=== PATIENT | female | born 1965 | race Caucasian/White ===

== ENCOUNTER → 2021-12-21 08:28 | Outpatient (BNVA) | payer BC, SELFPAY | PROVIDERS: Visit Provider Internal Medicine | DX: M79.672 Pain in left foot (principal) | CPT/HCPCS: 73600; 73620 ==

== ENCOUNTER 2021-12-21 10:21 | Outpatient (CLI) | payer BC, SELFPAY ==
[2021-12-21 11:36] LABS: Calcium 9.2 mg/dL (8.5-10.5)
[2021-12-21 11:43] LABS: Ferritin 263 ng/mL (15-150); Iron 64 ug/dL (37-145); Magnesium 1.9 mg/dL (1.7-2.3); Phosphorus 3.5 mg/dL (2.5-4.5); Thyroid Stimulating Hormone 1.76 uIU/mL (0.27-4.20); Uric Acid 4.1 mg/dL (2.4-5.7)
[2021-12-21 11:44] LABS: Parathyroid Hormone 37.6 pg/mL (15-65)
[2021-12-21 11:52] LABS: Hepatitis B Core AB, Total Non-Reactive (Nonreactive); Hepatitis B Surface Antigen Non-Reactive (Nonreactive); Hepatitis C Virus Antibody Non-Reactive (Nonreactive)
[2021-12-22 12:38] LABS: COMPLEMENT COMPONENT C3C 92 mg/dL (83-193); COMPLEMENT COMPONENT C4C 8 mg/dL (15-57)
[2021-12-22 15:12] LABS: THYROID PEROXIDASE ANTIBODIES 6 IU/mL (<9)
[2021-12-22 16:53] LABS: CENTROMERE B ANTIBODY <1.0 NEG AI (<1.0 NEG); JO-1 ANTIBODY <1.0 NEG AI (<1.0 NEG); RNP ANTIBODY <1.0 NEG AI (<1.0 NEG); SCL-70 ANTIBODY <1.0 NEG AI (<1.0 NEG); SJOGREN'S ANTIBODY (SS-A) <1.0 NEG AI (<1.0 NEG); SM ANTIBODY <1.0 NEG AI (<1.0 NEG); SS-B <1.0 NEG AI (<1.0 NEG)
[2021-12-23 12:22] LABS: COMPLEMENT, TOTAL (CH50) >60 U/mL (31-60)
[2021-12-23 13:13] LABS: ANA PATTERN Nuclear, Homogeneous; ANA SCREEN, IFA POSITIVE (NEGATIVE)
[2021-12-23 15:03] LABS: DNA AB (DS) CRITHIDIA,IFA NEGATIVE (NEGATIVE)
== END 2021-12-21 10:22 | disposition home or self-care (01) ==
PROVIDERS: Visit Provider Internal Medicine
DX: C85.90 Non-Hodgkin lymphoma, unspecified, unspecified site (principal); M25.579 Pain in unspecified ankle and joints of unspecified foot; M32.9 Systemic lupus erythematosus, unspecified; R53.83 Other fatigue
CPT/HCPCS: 36415; 82310; 82728; 83516; 83540; 83735; 83970; 84100; 84443; 84550; 86140; 86160; 86162; 86235; 86255; 86376; 86704; 86803; 87340

== ENCOUNTER → 2022-01-07 12:14 | Outpatient (BNVA) | payer BC, SELFPAY | PROVIDERS: Visit Provider Internal Medicine | DX: R53.83 Other fatigue (principal); M32.9 Systemic lupus erythematosus, unspecified; M25.579 Pain in unspecified ankle and joints of unspecified foot; Z79.899 Other long term (current) drug therapy | CPT/HCPCS: 86480 ==

== ENCOUNTER 2022-11-25 10:26 | Outpatient (CLI) | payer OTHER, SELFPAY ==
--- NOTE | 2022-11-25 | XR_ITS ---
WS: [id number] Exam: XR ribs LT mn 3V w CXR1V [id number] Date/Time of Exam: 11/25/2022 11:41 AM Reason For Exam: CHEST PAIN, UNSPECIFIED There are nondisplaced hairline fractures of the lateral posterior left sixth and seventh ribs. No ot her rib fractures. The left lung is fully expanded and clear. There is chronic fibrosis and scarring with bleb formation in the bilateral lung apices. Normal heart size. The mediastinum is normal in con tour. XR/XR ribs LT mn 3V w CXR1V [id number] IMPRESSION: 1. Nondisplaced hairline fractures of the lateral posterior left sixth and jean-paul nth ribs. No pneumothorax. 2. Fibrous scarring and bleb formation in the bilateral lung apices. Bilateral apical pleural thickening most pronounced on the left.
== END 2022-11-25 10:27 | disposition home or self-care (01) ==
LOC: RAD 10:34
PROVIDERS: PCP Family Medicine; Visit Provider Family Medicine
DX: S22.42XA Multiple fractures of ribs, left side, initial encounter for closed fracture (principal); X58.XXXA Exposure to other specified factors, initial encounter
CPT/HCPCS: 71101

== ENCOUNTER → 2024-04-24 12:34 | Outpatient (BNVA) | payer OTHER, SELFPAY | PROVIDERS: PCP Family Medicine; Visit Provider Registered Nurse Neonatal Intensive Care | DX: R30.0 Dysuria (principal) | CPT/HCPCS: 81000 ==

== ENCOUNTER 2024-05-01 15:22 | Outpatient (CLI) | payer OTHER, SELFPAY ==
--- NOTE | 2024-05-01 15:39 | XRR_ITS ---
PROCEDURE INFORMATION: Exam: XR Abdomen Exam date and time: 05/01/2024 3:44 PM Age: 59 years old Clinical indication: Nausea and vomiting; Abdominal pain; Patient HX: Lymphoma; Additional info: Hematuria/nausea and vomiting/abdominal pain TECHNIQUE: Imaging protocol: Radiologic exam of the abdomen. Views: Frontal supine view of the abdomen. 1 View. COMPARISON: CT chest abdpel w/*[id number] 08/09/2018 1:52 PM FINDINGS: Gastrointestinal tract: Mild constipation without bowel obstruction. Capsule like structure projecting in the rectum and in the descending colon, likely ingested material. Intraperitoneal space: No free air. Organs: Punctate calcifications overlying the left renal shadow and expected course of the left ureter. Vasculature: Pelvic phleboliths. Bones/joints: Bone demineralization without acute fracture or aggressive lesions. XR/XR KUB [id number] IMPRESSION: Working diagnosis of left nephrolithiasis and possibly left ureterolithiasis versus artifact or phleboliths. COMMENTS: Correlation with CT abdomen and pelvis (stone protocol) recommended.
== END 2024-05-01 15:23 | disposition home or self-care (01) ==
PROVIDERS: PCP Family Medicine; Visit Provider Nurse Practitioner Family
DX: R31.9 Hematuria, unspecified (principal); R10.9 Unspecified abdominal pain; R53.83 Other fatigue; R11.2 Nausea with vomiting, unspecified; N20.0 Calculus of kidney
CPT/HCPCS: 74018

== ENCOUNTER 2024-05-02 00:39 | Inpatient (IN) | payer OTHER, SELFPAY ==
[2024-05-02] VITALS (49 sets, daily range): BP systolic 101–161; BP diastolic 52–102; PULSE 64–101; RESP 10–33; TEMP 36.8–36.9; O2SAT 92–98; BMI 17.7; BMI 16.8
[2024-05-02 01:13] LABS: Charge for UA Resulting for Rev
[2024-05-02 01:26] LABS: Bilirubin Urine Negative (Negative); Blood Urine 1+ (Negative); Glucose Urine UA Negative (Normal); Ketones Urine Negative (Negative); Leukocyte Esterase Urine Negative (Negative); Nitrate Urine Negative (Negative); Protein Urine Trace (Negative); Specific Gravity, Urine 1.007 (1.005-1.030); Urine Appearance Clear (CLEAR); Urine Color Yellow (Yellow); Urobilinogen Urine 0.2 mg/dL (Negative); pH Urine 5.5 (5-7)
[2024-05-02 01:30] LABS: Basophils # 0.1 10^3/uL (0.0-0.1); Basophils % 0.6 %; Eosinophils # 0.1 10^3/uL (0.0-0.8); Eosinophils % 1.3 %; Hematocrit 38.3 % (36-47); Lymphocytes # 2.2 10^3/uL (0.8-4.8); Lymphocytes % 22.2 %; Mean Corpuscular HGB Conc 34.2 g/dL (30-55); Mean Corpuscular Hemoglobin 29.2 pg (27-33); Mean Corpuscular Volume 85.3 fl (85-98); Mean Platelet Volume 9.7 fL (7.4-10.4); Monocytes # 1.2 10^3/uL (0.2-0.9); Neutrophils # 6.36 10^3/uL (1.8-7.7); Neutrophils % 63.6 %; Nucleated Red Blood Cells % 0 %; Platelet Count 408 10^3/cmm (157-399); Red Blood Count 4.49 10^6/uL (3.85-5.65); Red Cell Distribution Width 11.8 % (12.1-15.1)
[2024-05-02 01:39] LABS: Add Urine Culture? No; Amorphous Sediment Urine 1+ /hpf; Bacteria Urine TRACE /hpf; Hyaline Casts Urine 0-4 /lpf; Mucus Urine 2+ /hpf; RBC Urine 0-4 /hpf (0-2)
[2024-05-02 01:47] LABS: Alanine Aminotransferase 22 U/L (0-33); Albumin Level 3.9 g/dL (3.5-5.2); Alkaline Phosphatase 120 U/L (35-105); Aspartate Amino Transferase 34 U/L (0-32); Blood Urea Nitrogen 36 mg/dL (8-23); Carbon Dioxide 30 mmol/L (22-29); Chloride 91 mmol/L (98-107); Globulin 3.4 g/dL (1.3-4.6); Glomerular Filtration Rate 22.8 mL/min (90-130); Glucose 123 mg/dL (65-115); Magnesium 1.9 mg/dL (1.7-2.3); Osmolality Calculated 292 mOsm/kg (285-295); Phosphorus 5.2 mg/dL (2.5-4.5); Sodium 136 mmol/L (136-145); Total Bilirubin 0.6 mg/dL (0.15-1.2); Total Protein 7.3 g/dL (6.6-8.7)
--- NOTE | 2024-05-02 02:12 | ED_ITS ---
HPI - Recheck/Abnormal Lab/Rx 2 General: Chief Complaint: Recheck/Abnormal Lab/Rx Stated Complaint: doc called labs show renal failure ER Aamir Time Seen by Provider: 05/02/24 01:23 History of Present Illness: Patient presents to the ER after receiving a call from her PCP stating that she is in renal failure. Patient says she been vomiting and has not been able to keep anything down her stomach at all for about the last 5 days. Patient says she lost about 10 to 15 pounds during the last 2 to 3 months.. Patient developed some weakness overall. She has been having hot and cold flashes, and low abdominal pain for the last 2 to 3 days. Patient is never had any kidney problems before per her. Review of Systems 2 General: Reports: 10 or more systems reviewed and unremarkable except in HPI and below PFSH ED 2 PFSH: Medical History Lymphoma Fatigue Lupus Ankle arthralgia Family History Other Cancer Chronic kidney disease (CKD) Diabetes Hyperlipidemia Stroke Denies family history of Rheumatoid arthritis Lupus CAD (coronary artery disease) Hypertension Social History Smoking and tobacco/nicotine status: current every day tobacco/nicotine user cigarettes Packs smoked per day: 1 Alcohol intake: never Physical Exam 2 Const: COMMON NORMALS: no acute distress, average body habitus, patient oriented x3, no limitations, healthy appearing, alert and well nourished HENMT: COMMON NORMALS: normocephalic, atraumatic, hearing grossly normal bilaterally, external ears normal, Normal external nose present and moist oral mucous membranes HEAD & SCALP: normocephalic and atraumatic NOSE: Normal external nose present EXTERNAL EAR: Yes external ears normal Neck/C-Spine: COMMON NORMALS: full ROM, no lymphadenopathy, supple, no meningeal signs, no JVD and Thyroid normal THYROID: Thyroid normal Chest: COMMONS NORMALS: normal inspection of the chest and normal palpation of entire chest wall Resp: COMMON NORMALS: normal respiratory effort, No retractions, No use of accessory muscles and clear to auscultation bilaterally AUSCULTATION: clear to auscultation bilaterally Cardio: COMMON NORMALS: no JVD, regular rate, regular rhythm, S1 normal heart sound present, S2 normal heart sound present, No gallops present (Cardio), No clicks present (Cardio), No murmurs present (Cardio) and No rub (Cardio) R ATE: regular rate RHYTHM: regular rhythm HEART SOUNDS: S1 normal heart sound present and S2 normal heart sound present GI: COMMON NORMALS: Normal to inspection, nondistended, normoactive bowel sounds present, Soft to palpation, non-tender, No hepatosplenomegaly present and no masses PALPATION: Yes Soft to palpation and Yes No hepatosplenomegaly present Neuro: COMMON NORMALS: patient oriented x3 SENSORIUM/ORIENTATION: Yes alert MENINGEAL SIGNS: Yes no meningeal signs Course 2 Vital Signs: Vital signs: Vital Signs Temperature 98.4 F 05/02/24 00:46 Pulse Rate 73 05/02/24 03:30 Respiratory Rate 16 05/02/24 03:30 Blood Pressure 158/77 05/02/24 03:30 Pulse Oximetry 97 05/02/24 03:30 Oxygen Delivery Me thod Room Air 05/02/24 00:46 MDM - Recheck/Abnormal Lab/Rx Medical Decision Making We repeated labs and checked him against Dr. Margie Simpson's lab work CBC normal, potassium 3.0, BUN/creatinine even more elevated at 36 and 2.2, calcium continuously elevated at 16, patient was given 1 L of normal saline for Zofran, and 40 of oral potassium. Discussed this case with Dr. Montoya who would like this patient paced in ICU for further evaluation and treatment specifically for the elevated calcium. Medical Records I reviewed the patient's medical records. Lab Data I reviewed the patient's lab results. 05/02/24 01:20 05/02/24 01:20 Laboratory Results WBC 10.00 10^3/uL (3.29-11.43) 05/02/24 01:20 RBC 4.49 10^6/uL (3.85-5.65) 05/02/24 01:20 Hgb 13.10 g/dL (11.27-16.99) 05/02/24 01:20 Hct 38.3 % (36-47) 05/02/24 01:20 MCV 85.3 fl (85-98) 05/02/24 01:20 MCH 29.2 pg (27-33) 05/02/24 01:20 MCHC 34.2 g/dL (30-55) 05/02/24 01:20 RDW 11.8 % (12.1-15.1) L 05/02/24 01:20 Plt Count 408 10^3/cmm (157-399) H 05/02/24 01:20 MPV 9.7 fL (7.4-10.4) 05/02/24 01:20 Neut % (Auto) 63.6 % 05/02/24 01:20 Lymph % (Auto) 22.2 % 05/02/24 01:20 [place] % (Auto) 12.0 % 05/02/24 01:20 Eos % (Auto) 1.3 % 05/02/24 01:20 Baso % (Auto) 0.6 % 05/02/24 01:20 Neut # (Auto) 6.36 10^3/uL (1.8-7.7) 05/02/24 01:20 Lymph # (Auto) 2.2 10^3/uL (0.8-4.8) 05/02/24 01:20 [place] # (Auto) 1.2 10^3/uL (0.2-0.9) H 05/02/24 01:20 Eos # (Auto) 0.1 10^3/uL (0.0-0.8) 05/02/24 01:20 Baso # (Auto) 0.1 10^3/uL (0.0-0.1) 05/02/24 01:20 Nucleated RBC % (auto) 0 % 05/02/24 01:20 Nucleated RBCs # 0.0 /100WBC 05/02/24 01:20 Sodium 136 mmol/L (136-145) 05/02/24 01:20 Potassium 3.0 mmol/L (3.5-5.1) L 05/02/24 01:20 Chloride 91 mmol/L (98-107) L 05/02/24 01:20 Carbon Dioxide 30 mmol/L (22-29) H 05/02/24 01:20 Anion Gap 18.0 (5-19) 05/02/24 01:20 BUN 36 mg/dL (8-23) H 05/02/24 01:20 Creatinine 2.2 mg/dL (0.5-0.9) H 05/02/24 01:20 GFR Calculation 22.8 mL/min (90-130) L 05/02/24 01:20 Glucose 123 mg/dL (65-115) H 05/02/24 01:20 Calculated Osmolality 292 mOsm/kg (285-295) 05/02/24 01:20 Calcium 16.0 mg/dL (8.5-10.5) H* 05/02/24 01:20 Phosphorus 5.2 mg/dL (2.5-4.5) H 05/02/24 01:20 Magnesium 1.9 mg/dL (1.7-2.3) 05/02/24 01:20 Total Bilirubin 0.6 mg/dL (0.15-1.2) 05/02/24 01:20 AST 34 U/L (0-32) H 05/02/24 01:20 ALT 22 U/L (0-33) 05/02/24 01:20 Alkaline Phosphatase 120 U/L (35-105) H 05/02/24 01:20 Total Protein 7.3 g/dL (6.6-8.7) 05/02/24 01:20 Albumin 3.9 g/dL (3.5-5.2) 05/02/24 01:20 Globulin 3.4 g/dL (1.3-4.6) 05/02/24 01:20 Urine Color Yellow (Yellow) 05/02/24 01:06 Urine Appearance Clear (CLEAR) 05/02/24 01:06 Urine pH 5.5 (5-7) 05/02/24 01:06 Ur Specific [place] 1.007 (1.005-1.030) 05/02/24 01:06 Urine Protein Trace (Negative) A 05/02/24 01:06 Urine Glucose (UA) Negative (Normal) 05/02/24 01:06 Urine Ketones Negative (Negative) 05/02/24 01:06 Urine Blood 1+ (Negative) A 05/02/24 01:06 Urine Nitrate Negative (Negative) 05/02/24 01:06 Urine Bilirubin Negative (Negative) 05/02/24 01:06 Urine Urobilinogen 0.2 mg/dL (Negative) 05/02/24 01:06 Ur Leukocyte Esterase Negative (Negative) 05/02/24 01:06 Urine RBC 0-4 /hpf (0-2) H 05/02/24 01:06 Urine WBC 5-10 /hpf (0-5) H 05/02/24 01:06 Ur Squamous Epith Cells 5-10 /hpf (0-5) H 05/02/24 01:06 Amorphous Sediment 1+ /hpf 05/02/24 01:06 Urine Bacteria Trace /hpf (NONE) 05/02/24 01:06 Hyaline Casts 0-4 /lpf H 05/02/24 01:06 Urine Mucus 2+ /hpf 05/02/24 01:06 All radiology interpretation(s) finalized by discharge Discharge Plan Discharge Patient Disposition: Admitted As Inpatient Clinical Impression: Hypercalcemia, Acute hypokalemia Acute renal failure Qualifiers: Acute renal failure type: unspecified Qualified Code(s): N17.9 - Acute kidney failure, unspecified Condition: Stable Coding Level of Care Code ED [employer] for Morena Garnica
[2024-05-02] MEDS: sodium chloride 0.9% 1,000 ML 999 ML IV (02:31)
[2024-05-02] MEDS: ondansetron 2 mg/ML SDV 2 mL 4 MG IVP (02:31)
[2024-05-02] MEDS: potassium chloride ER 20 mEq Tablet 40 MEQ PO (03:25)
[2024-05-02] MEDS: HYDROcodone-acetaminophen 5-325 mg Tablet 1 TAB PO (03:31)
--- NOTE | 2024-05-02 03:53 | P.HP_ITS ---
Providers/Chief Complaint 2 Primary Care Provider: Dipti Luna MD Chief Complaint: doc called labs show renal failure ER Aamir History of Present Illness Rabia Galaviz is a 59 year old female With past medical history of Hodgkin's lymphoma presented to the ER after receiving a call from her primary care physician that she is in renal failure. She states she has been having nausea and vomiting for the last 1 week and has not been able to tolerate oral intake. She has lost 10 to 15 pounds in the last 3 months. She has generalized weakness and has been having a lot of hot and cold flashes and complains of abdominal pain for the last 2 to 3 days. She has never had any kidney problems before. Patient does have a history of lupus for which she follows with rheumatology. She was diagnosed in 2005 and has been on hydroxychloroquine since then. Patient also has a history of lymphoma and has has completed 6 rounds of chemo in the past. Workup in ER revealed hypercalcemia with calcium 16, potassium 3, creatinine 2.2. We do not have any other labs on patient from prior. Phosphorus 5.2. Patient states she takes vitamin D and calcium supplements daily. Unable to tell me doses of that however. We will need to complete medication reconciliation with the patient. Medications/Allergies Home Medications Medication Instructions Recorded Confirmed Last Taken Type biotin 10,000 mcg capsule mcg PO 12/21/21 04/24/24 04/30/24 08:00 History ferrous fumarate 325 mg (106 mg 325 mg PO DAILY 12/21/21 05/02/24 04/30/24 08:00 History iron) tablet folic acid 1 mg tablet 1 mg PO DAILY 12/21/21 05/02/24 04/30/24 08:00 History hydroxychloroquine 200 mg tablet 200 mg PO BID 12/21/21 05/02/24 04/30/24 08:00 History multivitamin 1 tab PO DAILY 12/21/21 05/02/24 04/30/24 08:00 History calcium acetate PO 01/07/22 04/24/24 04/30/24 08:00 History diclofenac sodium 1 % topical gel 4 g topical QID #100 grams 01/07/22 04/24/24 Unknown Rx (Voltaren Arthritis Pain) turmeric PO 01/07/22 04/24/24 Unknown History vit C 30 mg-s.gomez 250 mg-celery cap PO 01/07/22 04/24/24 Unknown History seed 75 mg-grape seed extrt capsule (Tart Gomez) meloxicam 15 mg tablet See Rx Instructions .Route 05/19/22 04/24/24 Unknown Rx .COMPLEX #30 tabs Allergies Allergy/AdvReac Type Severity Reaction Status Date / Time Penicillins Allergy Mild ALGY-Rash Verified 05/02/24 00:51 PFSH Acute 2 PFSH: Medical History Lymphoma Fatigue Lupus Ankle arthralgia Family History Other Cancer Chronic kidney disease (CKD) Diabetes Hyperlipidemia Stroke Denies family history of Rheumatoid arthritis Lupus CAD (coronary artery disease) Hypertension Social History Smoking and tobacco/nicotine status: current every day tobacco/nicotine user cigarettes Packs smoked per day: 1 Alcohol intake: never Vitals/I&O/Wt Last Vital Signs Temp 98.4 F 05/02/24 00:46 Pulse 73 05/02/24 03:30 Resp 16 05/02/24 03:30 BP 158/77 05/02/24 03:30 Pulse Ox 97 05/02/24 03:30 O2 Del Method Room Air 05/02/24 00:46 05/01/24 05/01/24 05/02/24 14:59 22:59 06:59 Intake Total 1000 / 1000 Balance 1000 / 1000 Weight last 48 hrs Weight 59.421 kg Physical Exam 2 Narrative: General: Alert oriented x3, patient seen laying in bed HEENT: Normocephalic, atraumatic, EOMI Cardio: Regular rate rhythm, normal S1-S2 Respiratory: Good bilateral air entry, no wheezes no rhonchi appreciated GI: Abdomen soft, nontender, nondistended, bowel sounds + Extremities:no edema, no cyanosis Data 05/02/24 01:20 05/02/24 05:20 A&P Assessment and plan (1) Hypercalcemia: (2) Acute hypokalemia: (3) Lymphoma: (4) Lupus: (5) Fatigue: Plan #Severe Hypercalcemia #DARLING #History of lymphoma, on chemotherapy in the past #SLE, on hydroxychloroquine, follows with rheumatology #Generalized weakness, abdominal pain most likely secondary to hypercalcemia ? Will place on normal saline 200 cc/h, will hold off on adding lasix 2/2 to DARLING at this time ? Place Edmonds catheter for accurate output. Goal urine output 100-150 cc/h ?Calcitonin IV x1, recheck serum calcium in 6 hours, may repeat calcitonin in 12 hours for total duration of 24 hours - albumin 3.9. - Will repeat Calcium level to confirm value before starting calcitonin - Check PTH, PTHrP, TSH, vitamin D level - Denosumab 60 mg subcu x1. pts creatinine clearance is 25 - Check calcium level q4 hours - Pt apparently on calcium acetate supplement at home? Will discontinue - Will need to verify home meds - Potassium 40 meq x 1 given in ER - consider checking CT chest abd pelvis w/o contrast Full Code DVT PPX: Heparin Sub BID Attestations 2 Medical Necessity Statement*: > 2 midnight stay for management of hypercalcemia Diagnoses Hypercalcemia E83.52 Acute hypokalemia E87.6 Lymphoma C85.90 Lupus M32.9 Fatigue R53.83
[2024-05-02] MEDS: sodium chloride 0.9% 1,000 ML 200 ML IV (04:03)
[2024-05-02] MEDS: heparin 5,000 unit/mL INJ 1 mL 5000 UNIT SUBCUT ×2 (05:17→16:38)
[2024-05-02 05:44] LABS: Potassium, Radom Urine 19 mmol/L; Urine Random Chloride 24 mmol/L; Urine Random Sodium 23 mmol/L
[2024-05-02] MEDS: morphine 4 mg/mL SDV 1 mL 2 MG IVP (05:56)
[2024-05-02 06:03] LABS: Alanine Aminotransferase 18 U/L (0-33); Albumin Level 3.4 g/dL (3.5-5.2); Alkaline Phosphatase 103 U/L (35-105); Anion Gap 13.6 (5-19); Aspartate Amino Transferase 31 U/L (0-32); Blood Urea Nitrogen 36 mg/dL (8-23); Carbon Dioxide 30 mmol/L (22-29); Chloride 97 mmol/L (98-107); Glomerular Filtration Rate 21.6 mL/min (90-130); Glucose 107 mg/dL (65-115); Magnesium 1.8 mg/dL (1.7-2.3); Osmolality Calculated 293 mOsm/kg (285-295); Parathyroid Hormone 8.6 pg/mL (15-65); Potassium 3.6 mmol/L (3.5-5.1); Sodium 137 mmol/L (136-145); Thyroid Stimulating Hormone 3.19 uIU/mL (0.27-4.20); Total Bilirubin 0.5 mg/dL (0.15-1.2); Total Protein 6.4 g/dL (6.6-8.7)
--- NOTE | 2024-05-02 06:07 | CT_ITS ---
WS: [id number] CT CHEST, ABDOMEN, AND PELVIS TECHNIQUE: Noncontrast CT of the chest, abdomen, and pelvis with coronal and sagittal reformatted radha ges. CLINICAL INFORMATION: hypercalcemia severe COMPARISON: 2018 DLP: 446.[address] scans at [facility] use at least one of these dose optimization techniques: automated e xposure control; mA and/or kV adjustment per patient size (includes targeted exams where dose is matc hed to clinical indication); or iterative reconstruction. CT CHEST: Advanced chronic emphysematous changes. Prominent biapical fibrosis. Lung bases are well aerated. Destiney pical fibrosis progressed since 2019 but similar in appearance. Slight bronchiectasis in the RIGHT up per lobe with pleural parenchymal scarring. Pleural parenchymal scarring along the RIGHT fissure. No focal pneumonia or pleural fluid. Normal caliber thoracic aorta. Aortic calcification. No mediastinal or hilar lymphadenopathy. No axillary lymphadenopathy. Mild thoracic curve. Moderate thoracic kyphos is. Chronic anterior wedging in the midthoracic spine. CT ABDOMEN AND PELVIS: Lobulated spleen with calcification and mild splenomegaly similar to 2018 but progressed in size. Nor mal noncontrast liver. Normal GE junction. Normal noncontrast gallbladder. Adrenal glands are normal. Edmonds catheter. Aortic calcification. Normal caliber abdominal aorta. Dense rectosigmoid constipatio n. Adrenal glands are normal. Normal visualized noncontrast pancreas. No other acute findings. CT/[place] [id number] IMPRESSION: 1. No acute chest findings. 2. Prominent bilateral extrarenal pelvis. No hydronephrosis in either kidney. No evidence of cortical calcifications or medullary nephrocalcinosis. 3. Edmonds catheter. Air-fluid level in the bladder. 4. Dense sigmoid constipation. 5. Splenomegaly with lobulated spleen with calcification. This is progressed c ompared to previous. 6. No other acute findings.
--- NOTE | 2024-05-02 06:08 | ECG_ITS ---
[facility] Test Date: 2024-05-02 Pat Name: Rabia Galaviz Department: Room: [facility] Gender: Female Public Address Servicer: : 1965 Requested By: Coty Montoya Order Number: [id number] Leelee MD: Sincere Austin M.D. Measurements Intervals [place] Rate: 73 P: 89 [place]: 116 QRS: 87 QRSD: 90 T: 87 QT: 329 QTc: 363 Interpretive Statements SINUS RHYTHM WITH SHORT [place] INTERVAL WITH OCCASIONAL VENTRICULAR PREMATURE COMPLEXES MINIMAL VOLTAGE CRITERIA FOR LVH, CONSIDER NORMAL VARIANT [MEETS CRITERIA IN ONE OF: R(aVL), S(V1), R(V5), R(V5/V6)+S(V1)] NONSPECIFIC T-WAVE ABNORMALITY No previous ECG available for comparison Electronically Signed On 05-02-2024 6:40:02 CDT by Sincere Austin M.D. [id number]
[2024-05-02 06:14] LABS: Procalcitonin 0.13 ng/mL (0-0.5)
[2024-05-02 06:16] LABS: Calcium 14.4 mg/dL (8.5-10.5)
[2024-05-02 06:18] LABS: 25 Hydroxy Vitamin D 104 ng/mL (30-100)
--- NOTE | 2024-05-02 06:18 | PC.NURSE ---
0618 Critical Lab was called. Calcium 14.4 for this patient. Nurse was notified and this is an improved result.
[2024-05-02 08:24] LABS: Calcium 14.2 mg/dL (8.5-10.5)
--- NOTE | 2024-05-02 09:33 | PC.NURSE ---
Pt taken to CT via wheelchair. Tolerated well.
[2024-05-02] MEDS: dexamethasone 10 mg/mL INJ 6 MG IVP (09:51)
[2024-05-02] MEDS: sodium chloride 0.9% 1,000 ML 100 ML IV ×2 (12:17→22:02)
[2024-05-02 12:48] LABS: Calcium 13.9 mg/dL (8.5-10.5)
--- NOTE | 2024-05-02 14:51 | P.PN_ITS ---
Subjective 2 Subjective: Patient was seen this morning, family members are at bedside, she denies any fevers, no chills, no cough, does report about a 20 pound weight loss over the last few months, does report fatigue, malaise, she has had nausea vomiting for the last few days, no headache, no blurry vision, no dysuria, hematuria, no flank pain, she does report a fall a few days ago, but is able to walk since then, she reports a history of B-cell lymphoma, she received chemotherapy, no radiation therapy, her last follow-up was a few years ago, we discussed her hypercalcemia, etiology is concerning for malignancy related, but will continue to do further workup, she is understandable, family members at bedside Vitals/I&O/Wt Last Vital Signs Temp 98.3 F 05/02/24 05:30 Pulse 76 05/02/24 12:00 Resp 25 H 05/02/24 12:00 BP 134/75 05/02/24 12:00 Pulse Ox 97 05/02/24 12:00 O2 Del Method Room Air 05/02/24 06:00 05/01/24 05/02/24 05/02/24 22:59 06:59 14:59 Intake Total 1999 / 1999 440 / 440 Output Total 75 / 75 Balance 192 / 192 440 / 440 Weight last 48 hrs Weight 56.416 kg Weight 56.416 kg Weight 56.416 kg Weight 59.421 kg Physical Exam 2 Const: COMMON NORMALS: no acute distress and patient oriented x3 Resp: COMMON NORMALS: normal respiratory effort, No retractions, No use of accessory muscles and clear to auscultation bilaterally AUSCULTATION: clear to auscultation bilaterally Cardio: COMMON NORMALS: regular rate, regular rhythm, S1 normal heart sound present and S2 normal heart sound present RATE: regular rate RHYTHM: r egular rhythm HEART SOUNDS: S1 normal heart sound present and S2 normal heart sound present GI: COMMON NORMALS: Normal to inspection, nondistended, normoactive bowel sounds present and non-tender Extremity: COMMON NORMALS: no pedal edema Neuro: COMMON NORMALS: patient oriented x3 Psych: COMMON NORMALS: mental status grossly normal Urinary Catheter Management: Demonds: Cath Placed During This Visit: yes Reason for Continuing Indwelling Catheter: Accurate Measurement of Urinary Output in Critically Ill Patients Urinary Catheter Date of Insertion: 05/02/24 Urinary Catheter Time of Insertion: 05:29 Data 05/02/24 01:20 05/02/24 05:20 A&P Assessment and plan (1) Hypercalcemia: (2) Acute hypokalemia: (3) Lymphoma: (4) Lupus: (5) Fatigue: Plan #Severe Hypercalcemia #ADRLING #History of lymphoma, on chemotherapy in the past -History of diffuse large B-cell lymphoma stage IVb, presenting as large gastric mass and bulky celiac regional adenopathy, with metastatic disease in the pleura with moderate left pleural effusion and left adrenal gland and left inguinal lymph node involvement, status post 6 cycles of R-CHOP chemo, #SLE, on hydroxychloroquine, follows with rheumatology #Generalized weakness, abdominal pain most likely secondary to hypercalcemia ? Will place on normal saline 120 cc/h, will hold off on adding lasix 2/2 to DARLING at this time ? Place Edmonds catheter for accurate output. Goal urine output 100-150 cc/h ?Calcitonin IV x1, recheck serum calcium in 6 hours, may repeat calcitonin in 12 hours for total duration of 24 hours - albumin 3.9. - Will repeat Calcium level to confirm value before starting calcitonin - Check PTH, PTHrP, TSH, vitamin D level - Denosumab 60 mg subcu x1. pts creatinine clearance is 25 - Check calcium level q6 hours - Pt apparently on calcium acetate supplement at home? Will discontinue - Will need to verify home meds - Potassium 40 meq x 1 given in ER - CT chest abd pelvis w/o contrast Full Code DVT PPX: Heparin Sub BID Plan for today, spoke to oncology, 1 dose of pamidronate, infusion over 24 hours, given patient's DARLING, slow infusion, monitor serum calcium every 6 hours, IV fluids 1 dose IV steroids, follow test results as above Attestations 2 Medical Necessity Statement*: Patient requires hospitalization for severe hypercalcemia Diagnoses Hypercalcemia E83.52 Acute hypokalemia E87.6 Lymphoma C85.90 Lupus M32.9 Fatigue R53.83
--- NOTE | 2024-05-02 14:55 | USR_ITS ---
PROCEDURE INFORMATION: Exam: US Retroperitoneal; Complete; Kidneys and Bladder Exam date and time: 05/02/2024 4:36 PM Age: 59 years old Clinical indication: Condition or disease; Other: Maikol TECHNIQUE: Imaging protocol: Real-time ultrasound of the retroperitoneum with image documentation. Complete exam focused on the kidneys and bladder. COMPARISON: US abdomen limited [id number] 05/02/2024 4:31 PM FINDINGS: Right kidney: Normal echogenicity. The right kidney measures 14.9 cm in length. No stones. No hydronephrosis. Left kidney: Normal echogenicity. The left kidney measures 12.2 cm in length. No stones. No hydronephrosis. Urinary bladder: Unremarkable. US/US renal BI* [id number] IMPRESSION: Unremarkable kidneys and bladder.
--- NOTE | 2024-05-02 14:55 | USR_ITS ---
PROCEDURE INFORMATION: Exam: US Abdomen; Limited Exam date and time: 05/02/2024 4:31 PM Age: 59 years old Clinical indication: Condition or disease; Other: Splenic lymphoma; Additional info: Spleen, history of splenic lymphoma, mass TECHNIQUE: Imaging protocol: Real time ultrasound of the abdomen with image documentation. Limited exam focused on the region of clinical interest. COMPARISON: [place] [id number] 05/02/2024 8:52 AM FINDINGS: Spleen: Mildly enlarged spleen measuring 13.3 x 12.4 x 3.6 cm/312 mL. Multiple hypoechoic lesions are seen scattered throughout the spleen, the largest measuring 4.9 cm. US/US abdomen limited [id number] IMPRESSION: Mildly enlarged spleen with multiple nonspecific hypoechoic lesions. Further evaluation with contrast enhanced abdomen MRI should be considered in the adequate clinical setting.
[2024-05-02 16:06] LABS: Erythrocyte Sedimentation Rate 53 mm/hr (0-15)
[2024-05-02 18:48] LABS: Anion Gap 14.6 (5-19); Blood Urea Nitrogen 38 mg/dL (8-23); Calcium 13.4 mg/dL (8.5-10.5); Carbon Dioxide 28 mmol/L (22-29); Chloride 100 mmol/L (98-107); Glomerular Filtration Rate 22.8 mL/min (90-130); Glucose 228 mg/dL (65-115); Osmolality Calculated 304 mOsm/kg (285-295); Potassium 3.6 mmol/L (3.5-5.1); Sodium 139 mmol/L (136-145)
[2024-05-03] VITALS (25 sets, daily range): BP systolic 111–164; BP diastolic 59–90; PULSE 59–81; RESP 12–32; TEMP 36.6–36.9; O2SAT 92–99; BMI 16.8
[2024-05-03 00:59] LABS: Calcium 13.1 mg/dL (8.5-10.5)
[2024-05-03] MEDS: heparin 5,000 unit/mL INJ 1 mL 5000 UNIT SUBCUT ×2 (04:51→17:07)
[2024-05-03 05:55] LABS: Basophils % 0.4 %; Eosinophils # 0.1 10^3/uL (0.0-0.8); Eosinophils % 0.5 %; Hematocrit 32.3 % (36-47); Lymphocytes # 1.8 10^3/uL (0.8-4.8); Lymphocytes % 19.9 %; Mean Corpuscular HGB Conc 32.8 g/dL (30-55); Mean Corpuscular Hemoglobin 29.2 pg (27-33); Mean Platelet Volume 9.8 fL (7.4-10.4); Monocytes # 0.9 10^3/uL (0.2-0.9); Monocytes % 9.6 %; Neutrophils # 6.39 10^3/uL (1.8-7.7); Neutrophils % 69.2 %; Nucleated Red Blood Cells % 0 %; Platelet Count 315 10^3/cmm (157-399); Red Blood Count 3.63 10^6/uL (3.85-5.65); Red Cell Distribution Width 11.9 % (12.1-15.1); White Blood Count 9.25 10^3/uL (3.29-11.43)
[2024-05-03 06:21] LABS: Alanine Aminotransferase 16 U/L (0-33); Albumin Level 3.2 g/dL (3.5-5.2); Alkaline Phosphatase 93 U/L (35-105); Anion Gap 15.5 (5-19); Aspartate Amino Transferase 23 U/L (0-32); Blood Urea Nitrogen 37 mg/dL (8-23); Calcium 12.5 mg/dL (8.5-10.5); Carbon Dioxide 26 mmol/L (22-29); Chloride 106 mmol/L (98-107); Globulin 2.1 g/dL (1.3-4.6); Glomerular Filtration Rate 21.6 mL/min (90-130); Glucose 106 mg/dL (65-115); Osmolality Calculated 307 mOsm/kg (285-295); Phosphorus 4.1 mg/dL (2.5-4.5); Potassium 3.5 mmol/L (3.5-5.1); Sodium 144 mmol/L (136-145); Total Bilirubin 0.2 mg/dL (0.15-1.2); Total Protein 5.3 g/dL (6.6-8.7)
[2024-05-03 06:22] LABS: Magnesium 1.9 mg/dL (1.7-2.3)
--- NOTE | 2024-05-03 11:25 | P.CONIM_ITS ---
Providers/Reason For Consult 2 Consulting Physician/Specialty*: kommana/nephrology Reason for Consult*: DARLNIG , hypercalcemia Attending Physician: Dave Moulton MD Primary Care Provider: Dipti Luna MD History of Present Illness History of Present Illness Rabia Galaviz is a 59 year old female Patient is a 59-year-old female with past medical history of Hodgkin's lymphoma due to acute renal failure and hypercalcemia. Patient had been having nausea vomiting for the last 1 week Lost about 10 to 15 pounds recently. Also complained of being generalized weak. Patient also has a history of lupus and she is followed by rheumatology. Further workup in the ER has showed hypercalcemia with a calcium level of 16, creatinine of 2.2. Patient reported that she was taking vitamin D and calcium supplements. She is status post dose of calcitonin and calcium has improved. Creatinine remains stable. Patient currently denies any complaints Review of Systems 2 Narrative: Patient is awake alert, no distress HEENT S1-S2 regular rate and rhythm per report Lungs clear per report No pedal edema Medications/Allergies Home Medications Medication Instructions Recorded Confirmed Last Taken Type biotin 10,000 mcg capsule 10,000 mcg PO DAILY 12/21/21 05/02/24 04/30/24 08:00 History ferrous fumarate 325 mg (106 mg 325 mg PO DAILY 12/21/21 05/02/24 04/30/24 08:00 History iron) tablet folic acid 1 mg tablet 1 mg PO DAILY 12/21/21 05/02/24 04/30/24 08:00 History hydroxychloroquine 200 mg tablet 200 mg PO BID 12/21/21 05/02/24 04/30/24 08:00 History multivitamin 1 tab PO DAILY 12/21/21 05/02/24 04/30/24 08:00 History calcium carbonate 200 mg PO BID 05/02/24 05/02/24 05/01/24 History cyclobenzaprine 10 mg tablet 10 mg PO BEDTIME PRN Spasms 05/02/24 05/02/24 Unknown History tramadol 50 mg tablet 50 mg PO .Q4-6H PRN Pain 05/02/24 05/02/24 Unknown History Allergies Allergy/AdvReac Type Severity Reaction Status Date / Time Penicillins Allergy Mild ALGY-Rash Verified 05/02/24 00:51 Current Medications Generic Name Dose Route Start Last Admin Trade Name Freq PRN Reason Stop Dose Admin Dexamethasone 6 mg 05/02/24 09:45 05/02/24 09:51 Dexamethasone 10 Mg/Ml Inj IVP 6 mg Q24H MARIBELL Administration Heparin Sodium (Porcine) 5,000 unit 05/02/24 04:15 05/03/24 04:51 Heparin 5,000 Unit/Ml Inj 1 Ml SUBCUT 5,000 unit Q12H MARIBELL Administration Sodium Chloride 1,000 mls @ 100 mls/hr 05/02/24 04:00 05/02/24 22:02 Sodium Chloride 0.9% IV 100 mls/hr .Q10H MARIBELL Administration Morphine Sulfate 2 mg 05/02/24 05:37 05/02/24 05:56 Morphine 4 Mg/Ml Sdv 1 Ml IVP 2 mg Q4H PRN Administration SEVERE PAIN PFSH Acute 2 PFSH: Medical History Lymphoma Fatigue Lupus Ankle arthralgia Family History Other Cancer Chronic kidney disease (CKD) Diabetes Hyperlipidemia Stroke Denies family history of Rheumatoid arthritis Lupus CAD (coronary artery disease) Hypertension Social History Smoking and tobacco/nicotine status: current every day tobacco/nicotine user cigarettes Packs smoked per day: 1 Alcohol intake: never Vitals/I&O/Wt Last Vital Signs Temp 97.8 F 05/03/24 06:00 Pulse 78 05/03/24 09:30 Resp 26 H 05/03/24 09:30 BP 145/88 05/03/24 10:00 Pulse Ox 98 05/03/24 09:30 O2 Del Method Room Air 05/03/24 06:00 05/02/24 05/03/24 05/03/24 22:59 06:59 14:59 Intake Total 1695 / 2135 240 / 240 Output Total 2250 / 2250 700 / 2950 Balance -555 / -115 -700 / -815 240 / 240 Weight last 48 hrs Weight 56.416 kg Weight 56.416 kg Weight 56.416 kg Weight 56.416 kg Weight 56.416 kg Weight 59.421 kg Physical Exam 2 Urinary Catheter Management: Edmonds: Cath Placed During This Visit: yes Reason for Continuing Indwelling Catheter: Accurate Measurement of Urinary Output in Critically Ill Patients Urinary Catheter Date of Insertion: 05/02/24 Urinary Catheter Time of Insertion: 05:29 Data 05/03/24 05:45 05/03/24 05:45 A&P Assessment and plan (1) Hypercalcemia: (2) Acute renal failure: 1. Acute kidney injury: No baseline labs available, likely prerenal in the setting of poor p.o. intake and also secondary to hypercalcemia likely. -Agree with IV fluid resuscitation and monitor renal function, electrolytes stable and volume status stable, and avoid nephrotoxic agents and contrast studies. -Patient with history of lupus, will check complements and double-stranded DNA 2. Hypercalcemia: Likely from increased p.o. intake, noted elevated 25-hydroxy vitamin D levels, 1, 25 vitamin D levels pending and PTH RP pending, PTH appropriately suppressed in the setting of hypercalcemia -Status post calcitonin, status post pamidronate calcium dropping, continue IV fluids -Will avoid further doses of bisphosphonates due to renal insufficiency 3. B cell Lymphoma , metastatic, followed by oncology as outpatient 4. History of lupus on hydroxychloroquine Patient evaluated using audiovisual cart. Time spent 40 minutes. Qualifiers: Acute renal failure type: unspecified Qualified Code(s): N17.9 - Acute kidney failure, unspecified Consult Attestations 2 Medical Necessity Statement: per ramón Coding Level of Care Code Acute Code for g Fwd Diagnoses Hypercalcemia E83.52 Acute renal failure N17.9 Acute renal failure type: unspecified
[2024-05-03 12:44] LABS: Leukemia Profile (BBPL) See Report
[2024-05-03 13:04] LABS: Calcium 13.8 mg/dL (8.5-10.5)
[2024-05-03] MEDS: dexamethasone 10 mg/mL INJ 6 MG IVP (14:23)
--- NOTE | 2024-05-03 14:28 | P.PN_ITS ---
Subjective 2 Subjective: Patient was seen this morning, she is alert oriented x 4, follows all commands, normotensive, on room air, urine output 2950, I had a detailed discussion with patient, and her who was on the phone, we had a discussion about her hypercalcemia improving, will continue to monitor closely every 6 hours, monitor for overcorrection, continue steroids, her creatinine has plateaued to 2.2-2.3, states she still having good urine output, but admitted consult nephrology, the question is that what is the cause of her hypercalcemia my concern that it is malignancy related, possibly recurrence of her B-cell lymphoma, her imaging so far does not show any acute findings, but awaiting on further blood work, nonetheless she is going to have to follow-up with Dr. Baird as outpatient, she did have a good dinner, had a good breakfast, her appetite is improving, given her BMI we are going to have to watch her for refeeding syndrome closely, Vitals/I&O/Wt Last Vital Signs Temp 97.8 F 05/03/24 06:00 Pulse 78 05/03/24 09:30 Resp 26 H 05/03/24 09:30 BP 145/88 05/03/24 10:00 Pulse Ox 98 05/03/24 09:30 O2 Del Method Room Air 05/03/24 06:00 05/02/24 05/03/24 05/03/24 22:59 06:59 14:59 Intake Total 1695 / 2135 750 / 750 Output Total 2250 / 2250 700 / 2950 Balance -555 / -115 -700 / -815 750 / 750 Weight last 48 hrs Weight 56.416 kg Weight 56.416 kg Weight 56.416 kg Weight 56.416 kg Weight 56.416 kg Weight 59.421 kg Physical Exam 2 Const: COMMON NORMALS: no acute distress and patient oriented x3 Resp: COMMON NORMALS: normal respiratory effort, No retractions, No use of accessory muscles and clear to auscultation bilaterally AUSCULTATION: clear to auscultation bilaterally Cardio: COMMON NORMALS: regular rate, regular rhythm, S1 normal heart sound present and S2 normal heart sound present RATE: regular rate RHYTHM: r egular rhythm HEART SOUNDS: S1 normal heart sound present and S2 normal heart sound present GI: COMMON NORMALS: Normal to inspection, nondistended, normoactive bowel sounds present and non-tender Extremity: COMMON NORMALS: no pedal edema Neuro: COMMON NORMALS: patient oriented x3 Urinary Catheter Management: Edmonds: Cath Placed During This Visit: yes Reason for Continuing Indwelling Catheter: Accurate Measurement of Urinary Output in Critically Ill Patients Urinary Catheter Date of Insertion: 05/02/24 Urinary Catheter Time of Insertion: 05:29 Data 05/03/24 05:45 05/03/24 05:45 A&P Assessment and plan (1) Hypercalcemia: (2) Acute hypokalemia: (3) Lymphoma: (4) Lupus: (5) Fatigue: (6) Low BMI: (7) Weight loss: (8) Protein-calorie malnutrition, severe: Plan #Severe Hypercalcemia, etiology concerning for malignancy related #DARLING #History of lymphoma, on chemotherapy in the past -History of diffuse large B-cell lymphoma stage IVb, presenting as large gastric mass and bulky celiac regional adenopathy, with metastatic disease in the pleura with moderate left pleural effusion and left adrenal gland and left inguinal lymph node involvement, status post 6 cycles of R-CHOP chemo, #SLE, on hydroxychloroquine, follows with rheumatology #Generalized weakness, abdominal pain most likely secondary to hypercalcemia ? Will place on normal saline 120 cc/h, will hold off on adding lasix 2/2 to DARLING at this time ? Place Edmonds catheter for accurate output. Goal urine output 100-150 cc/h ?Calcitonin IV x1, -Status post pamidronate 90 mg IV over 24 hours -Currently on Decadron 6 mg IV push every 24 hours - albumin 3.9. -Monitor calcium levels every 6 hours - Check PTH decreased, PTHrP pending, TSH within normal limits, 25 hydroxy vitamin D level elevated, 1,25 hydroxy vitamin D pending, lymphoma panel pending, leukemia panel pending - Denosumab 60 mg subcu x1. pts creatinine clearance is 25 - Check calcium level q6 hours - CT chest abd pelvis w/o contrast, cannot do with contrast given patient's renal function, does show splenomegaly with lobulated spleen with calcifications, progress compared to prior -?Splenic ultrasound - US/US abdomen limited [id number] IMPRESSION: Mildly enlarged spleen with multiple nonspecific hypoechoic lesions. Further evaluation with contrast enhanced abdomen MRI should be considered in the adequate clinical setting. -will have to follow up with dr baird as outpatient -monitor for refeeding, monitor potassium, phosphorus, mag -Patient has evidence of severe protein calorie malnutrition, physical deconditioning, muscle loss Likely related to malignancy ? Bilateral temporal muscle wasting ? Loss of fat pad under ribs, clavicles, loss of muscle bilateral thighs, bilateral arms ? PT OT ? Dietary eval Full Code DVT PPX: Heparin Sub BID Plan for today, complete pamidronate, monitor calcium, iv fluids, monitor cr, consult nephrology Attestations 2 Medical Necessity Statement*: Patient requires hospitalization, inpatient, greater than 2 midnights for severe hypercalcemia, DARLING Diagnoses Hypercalcemia E83.52 Acute hypokalemia E87.6 Lymphoma C85.90 Lupus M32.9 Fatigue R53.83 Low BMI Weight loss R63.4 Protein-calorie malnutrition, severe E43
[2024-05-03 16:04] LABS: ALBUMIN 3.1 g/dL (3.8-4.8); ALPHA 1 GLOBULIN 0.5 g/dL (0.2-0.3); ALPHA 2 GLOBULIN 1.1 g/dL (0.5-0.9); BETA 1 GLOBULIN 0.3 g/dL (0.4-0.6); BETA 2 GLOBULIN 0.3 g/dL (0.2-0.5); GAMMA GLOBULIN 0.8 g/dL (0.8-1.7)
[2024-05-03] MEDS: calcitonin,salmon 200 unit/mL SDV 2mL 100 UNIT SUBCUT (17:07)
[2024-05-03 17:24] LABS: Calcium 13.3 mg/dL (8.5-10.5); Complement C3 132 mg/dL (90-180)
[2024-05-03] MEDS: ondansetron 2 mg/ML SDV 2 mL 4 MG IVP (17:56)
--- NOTE | 2024-05-03 18:29 | PC.NURSE ---
Report called to Med surg and given to Elsy. Will take pt up to room 269 shortly.
[2024-05-04] VITALS (9 sets, daily range): BP systolic 121–159; BP diastolic 65–95; PULSE 54–73; RESP 12–18; TEMP 36.5–36.8; O2SAT 97–99
[2024-05-04 00:54] LABS: Calcium 11.8 mg/dL (8.5-10.5)
[2024-05-04] MEDS: heparin 5,000 unit/mL INJ 1 mL 5000 UNIT SUBCUT ×2 (04:07→17:37)
[2024-05-04 06:27] LABS: Basophils % 0.5 %; Eosinophils % 0.2 %; Hematocrit 31.5 % (36-47); Lymphocytes # 1.5 10^3/uL (0.8-4.8); Lymphocytes % 17.4 %; Mean Corpuscular HGB Conc 33.7 g/dL (30-55); Mean Corpuscular Hemoglobin 29.2 pg (27-33); Mean Corpuscular Volume 86.8 fl (85-98); Monocytes # 0.7 10^3/uL (0.2-0.9); Neutrophils # 6.33 10^3/uL (1.8-7.7); Neutrophils % 73.7 %; Nucleated Red Blood Cells % 0 %; Platelet Count 329 10^3/cmm (157-399); Red Blood Count 3.63 10^6/uL (3.85-5.65); Red Cell Distribution Width 11.9 % (12.1-15.1)
[2024-05-04 06:43] LABS: Alanine Aminotransferase 14 U/L (0-33); Albumin Level 3.1 g/dL (3.5-5.2); Alkaline Phosphatase 90 U/L (35-105); Anion Gap 15.9 (5-19); Aspartate Amino Transferase 20 U/L (0-32); Blood Urea Nitrogen 36 mg/dL (8-23); Calcium 10.8 mg/dL (8.5-10.5); Carbon Dioxide 25 mmol/L (22-29); Chloride 105 mmol/L (98-107); Creatinine Clr Calc Pharmacy 29.0998; Globulin 2.7 g/dL (1.3-4.6); Glucose 90 mg/dL (65-115); Magnesium 1.6 mg/dL (1.7-2.3); Osmolality Calculated 304 mOsm/kg (285-295); Phosphorus 3.3 mg/dL (2.5-4.5); Sodium 143 mmol/L (136-145); Total Bilirubin 0.3 mg/dL (0.15-1.2); Total Protein 5.8 g/dL (6.6-8.7)
[2024-05-04 06:47] LABS: Potassium 2.9 mmol/L (3.5-5.1)
[2024-05-04] MEDS: potassium chloride premix 100 ML 25 MEQ IV ×2 (09:05→12:55)
[2024-05-04] MEDS: dexamethasone 10 mg/mL INJ 6 MG IVP (09:06)
[2024-05-04] MEDS: ferrous sulfate EC 325 mg Tablet PO (09:06)
[2024-05-04] MEDS: folic acid 1 mg Tablet PO (09:06)
--- NOTE | 2024-05-04 09:33 | PC.OT ---
Seen for OT eval and no services required due to pt already at a high level of function.
--- NOTE | 2024-05-04 12:28 | P.PN_ITS ---
Subjective 2 Subjective: no new complaints Medications: Reviewed: Yes Vitals/I&O/Wt Last Vital Signs Temp 98.0 F 05/04/24 11:30 Pulse 68 05/04/24 11:30 Resp 15 05/04/24 11:30 BP 151/95 05/04/24 11:30 Pulse Ox 99 05/04/24 11:30 O2 Del Method Room Air 05/04/24 11:30 05/03/24 05/04/24 05/04/24 22:59 06:59 14:59 Intake Total 1240 / 2230 118 / 118 Output Total 3950 / 3950 550 / 4500 Balance -2710 / -1720 -550 / -2270 118 / 118 Weight last 48 hrs Weight 58.542 kg Weight 56.416 kg Weight 56.416 kg Physical Exam 2 Narrative: awake , alert no distress S1S2 RRR per report lungs clear per report No edema Urinary Catheter Management: Edmonds: Cath Placed During This Visit: yes Reason for Continuing Indwelling Catheter: Accurate Measurement of Urinary Output in Critically Ill Patients Urinary Catheter Date of Insertion: 05/02/24 Urinary Catheter Time of Insertion: 05:29 Data 05/05/24 03:06 05/05/24 03:06 A&P Assessment and plan (1) Hypercalcemia: (2) Acute renal failure: 1. Acute kidney injury: No baseline labs available, likely prerenal in the setting of poor p.o. intake and also secondary to hypercalcemia likely. -Agree with IV fluid resuscitation and monitor renal function, electrolytes stable and volume status stable, and avoid nephrotoxic agents and contrast studies. -Patient with history of lupus, will check complements and double-stranded DNA - Cr improving 2. Hypercalcemia: Likely from increased p.o. intake, noted elevated 25-hydroxy vitamin D levels, 1, 25 vitamin D levels pending and PTH RP pending, PTH appropriately suppressed in the setting of hypercalcemia -Status post calcitonin, status post pamidronate calcium dropping, continue IV fluids -Will avoid further doses of bisphosphonates due to renal insufficiency 3. B cell Lymphoma , metastatic, followed by oncology as outpatient 4. History of lupus on hydroxychloroquine 4. Hypokalemia : replete K Patient evaluated using audiovisual cart. Time spent 40 minutes. Qualifiers: Acute renal failure type: unspecified Qualified Code(s): N17.9 - Acute kidney failure, unspecified Attestations 2 Medical Necessity Statement*: per medicine Coding Level of Care Code Acute Code for Chg Fwd Diagnoses Hypercalcemia E83.52 Acute renal failure N17.9 Acute renal failure type: unspecified
[2024-05-04 12:39] LABS: Calcium 11.2 mg/dL (8.5-10.5)
[2024-05-04 13:54] LABS: Anti-Double Strand DNA AB <1 IU/mL
--- NOTE | 2024-05-04 15:48 | P.PN_ITS ---
Subjective 2 Subjective: Patient was seen this morning, she denies any fevers, no chills, no cough, no nausea, no vomiting Vitals/I&O/Wt Last Vital Signs Temp 98.0 F 05/04/24 11:30 Pulse 68 05/04/24 11:30 Resp 15 05/04/24 11:30 BP 151/95 05/04/24 11:30 Pulse Ox 99 05/04/24 11:30 O2 Del Method Room Air 05/04/24 11:30 05/04/24 05/04/24 05/04/24 06:59 14:59 22:59 Intake Total 453.833 / 453.833 Output Total 550 / 4500 1000 / 1000 Balance -550 / -2270 -546.167 / -546.167 Weight last 48 hrs Weight 58.542 kg Weight 56.416 kg Weight 56.416 kg Physical Exam 2 Const: COMMON NORMALS: no acute distress and patient oriented x3 Resp: COMMON NORMALS: normal respiratory effort, No retractions, No use of accessory muscles and clear to auscultation bilaterally AUSCULTATION: clear to auscultation bilaterally Cardio: COMMON NORMALS: regular rate, regular rhythm, S1 normal heart sound present and S2 normal heart sound present RATE: regular rate RHYTHM: r egular rhythm HEART SOUNDS: S1 normal heart sound present and S2 normal heart sound present GI: COMMON NORMALS: Normal to inspection, nondistended, normoactive bowel sounds present and non-tender Extremity: COMMON NORMALS: no pedal edema Neuro: COMMON NORMALS: patient oriented x3 Psych: COMMON NORMALS: mental status grossly normal Urinary Catheter Management: Edmonds: Cath Placed During This Visit: yes Reason for Continuing Indwelling Catheter: Accurate Measurement of Urinary Output in Critically Ill Patients Urinary Catheter Date of Insertion: 05/02/24 Urinary Catheter Time of Insertion: 05:29 Data 05/04/24 06:14 05/04/24 06:14 A&P Assessment and plan (1) Hypercalcemia: (2) Acute hypokalemia: (3) Lymphoma: (4) Lupus: (5) Fatigue: (6) Low BMI: (7) Weight loss: (8) Protein-calorie malnutrition, severe: Plan #Severe Hypercalcemia, etiology concerning for malignancy related #DARLING #History of lymphoma, on chemotherapy in the past -History of diffuse large B-cell lymphoma stage IVb, presenting as large gastric mass and bulky celiac regional adenopathy, with metastatic disease in the pleura with moderate left pleural effusion and left adrenal gland and left inguinal lymph node involvement, status post 6 cycles of R-CHOP chemo, #SLE, on hydroxychloroquine, follows with rheumatology #Generalized weakness, abdominal pain most likely secondary to hypercalcemia ? Will place on normal saline 120 cc/h, will hold off on adding lasix 2/2 to DARLING at this time ? Place Edmonds catheter for accurate output. ?Calcitonin IV x1, received a second dose of calcitonin yesterday -Status post pamidronate 90 mg IV over 24 hours -Currently on Decadron 6 mg IV push every 24 hours - albumin 3.9. -Monitor calcium levels every 6 hours - Check PTH decreased, PTHrP pending, TSH within normal limits, 25 hydroxy vitamin D level elevated, 1,25 hydroxy vitamin D pending, lymphoma panel pending, leukemia panel pending - Denosumab 60 mg subcu x1. pts creatinine clearance is 25 - Check calcium level q6 hours - CT chest abd pelvis w/o contrast, cannot do with contrast given patient's renal function, does show splenomegaly with lobulated spleen with calcifications, progress compared to prior -?Splenic ultrasound - US/US abdomen limited [id number] IMPRESSION: Mildly enlarged spleen with multiple nonspecific hypoechoic lesions. Further evaluation with contrast enhanced abdomen MRI should be considered in the adequate clinical setting. -will have to follow up with dr gross as outpatient -monitor for refeeding, monitor potassium, phosphorus, mag -Patient has evidence of severe protein calorie malnutrition, physical deconditioning, muscle loss Likely related to malignancy ? Bilateral temporal muscle wasting ? Loss of fat pad under ribs, clavicles, loss of muscle bilateral thighs, bilateral arms ? PT OT ? Dietary eval Full Code DVT PPX: Heparin Sub BID Plan for today continue IV fluids monitor calcium, status post second dose of calcitonin yesterday, replace potassium, developing early evidence of refeeding syndrome, monitor potassium, phosphorus, Attestations 2 Medical Necessity Statement*: Patient requires hospitalization for hypercalcemia, DARLING, developing early refeeding syndrome Diagnoses Hypercalcemia E83.52 Acute hypokalemia E87.6 Lymphoma C85.90 Lupus M32.9 Fatigue R53.83 Low BMI Weight loss R63.4 Protein-calorie malnutrition, severe E43
[2024-05-04 16:27] LABS: Phosphorus 2.1 mg/dL (2.5-4.5)
[2024-05-04] MEDS: sodium chloride 0.9% 1,000 ML 100 ML IV (17:36)
[2024-05-05] VITALS (7 sets, daily range): BP systolic 135–147; BP diastolic 65–83; PULSE 64–70; RESP 15–20; TEMP 36.6–37.1; O2SAT 97–98
[2024-05-05] MEDS: sodium chloride 0.9% 1,000 ML 100 ML IV (00:55)
[2024-05-05] MEDS: morphine 4 mg/mL SDV 1 mL 2 MG IVP ×2 (01:14→08:43)
[2024-05-05 03:32] LABS: Basophils # 0.1 10^3/uL (0.0-0.1); Basophils % 0.5 %; Eosinophils % 0.4 %; Hematocrit 31.4 % (36-47); Lymphocytes # 1.9 10^3/uL (0.8-4.8); Lymphocytes % 19.7 %; Mean Corpuscular HGB Conc 32.5 g/dL (30-55); Mean Corpuscular Hemoglobin 28.9 pg (27-33); Mean Platelet Volume 10.2 fL (7.4-10.4); Monocytes # 0.8 10^3/uL (0.2-0.9); Monocytes % 8.3 %; Neutrophils # 6.85 10^3/uL (1.8-7.7); Neutrophils % 70.9 %; Nucleated Red Blood Cells % 0 %; Platelet Count 320 10^3/cmm (157-399); Red Blood Count 3.53 10^6/uL (3.85-5.65); White Blood Count 9.66 10^3/uL (3.29-11.43)
[2024-05-05 03:53] LABS: Alanine Aminotransferase 18 U/L (0-33); Albumin Level 3.2 g/dL (3.5-5.2); Alkaline Phosphatase 95 U/L (35-105); Anion Gap 14.5 (5-19); Aspartate Amino Transferase 21 U/L (0-32); Blood Urea Nitrogen 29 mg/dL (8-23); Calcium 10.8 mg/dL (8.5-10.5); Carbon Dioxide 24 mmol/L (22-29); Chloride 108 mmol/L (98-107); Creatinine Clr Calc Pharmacy 32.5233; Globulin 2.1 g/dL (1.3-4.6); Glomerular Filtration Rate 30.7 mL/min (90-130); Glucose 102 mg/dL (65-115); Osmolality Calculated 302 mOsm/kg (285-295); Potassium 3.5 mmol/L (3.5-5.1); Sodium 143 mmol/L (136-145); Total Bilirubin 0.2 mg/dL (0.15-1.2); Total Protein 5.3 g/dL (6.6-8.7)
[2024-05-05] MEDS: heparin 5,000 unit/mL INJ 1 mL 5000 UNIT SUBCUT (03:57)
[2024-05-05 04:08] LABS: Magnesium 1.6 mg/dL (1.7-2.3)
[2024-05-05] MEDS: sodium chloride 0.9% 1,000 ML 75 ML IV (08:42)
[2024-05-05] MEDS: dexamethasone 10 mg/mL INJ 6 MG IVP (08:44)
[2024-05-05] MEDS: ferrous sulfate EC 325 mg Tablet PO (08:44)
[2024-05-05] MEDS: folic acid 1 mg Tablet PO (08:44)
[2024-05-05] MEDS: potassium phosphate (mEq K) 40 MEQ in sodium chloride 0.9% (100 ml) 100 ML 27.27 MEQ IV (10:40)
[2024-05-05] MEDS: magnesium lactate 84 mg Tablet PO (10:41)
--- NOTE | 2024-05-05 12:20 | PM.DCS ---
Discharge Providers Date of Admission: 05/02/24 03:53 Date of Discharge: May 05, 2024 Attending Provider at Admission: Coty Montoya MD Attending Provider at Discharge: Dave Moulton MD Primary Care Provider: Dipti Luna MD Diagnoses at Discharge Discharge Diagnosis (1) Hypercalcemia: Status: Acute (2) Acute renal failure: Status: Acute Qualifiers: Acute renal failure type: unspecified Qualified Code(s): N17.9 - Acute kidney failure, unspecified Reason for Visit Reason for Visit: doc called labs show renal failure ER [facility] Course Hospital Course Rabia Galaviz is a 59 year old female With past medical history of Hodgkin's lymphoma presented to the ER after receiving a call from her primary care physician that she is in renal failure. She states she has been having nausea and vomiting for the last 1 week and has not been able to tolerate oral intake. She has lost 10 to 15 pounds in the last 3 months. She has generalized weakness and has been having a lot of hot and cold flashes and complains of abdominal pain for the last 2 to 3 days. She has never had any kidney problems before. Patient does have a history of lupus for which she follows with rheumatology. She was diagnosed in 2005 and has been on hydroxychloroquine since then. Patient also has a history of lymphoma and has has completed 6 rounds of chemo in the past. Workup in ER revealed hypercalcemia with calcium 16, potassium 3, creatinine 2.2. We do not have any other labs on patient from prior. Phosphorus 5.2. Patient states she takes vitamin D and calcium supplements daily. Unable to tell me doses of that however. We will need to complete medication reconciliation with the patient. Patient was admitted to [facility] for severe hypercalcemia, etiology concerning for malignancy related, possibly reoccurrence of her lymphoma, she has a history of lymphoma, on chemotherapy in the past -History of diffuse large B-cell lymphoma stage IVb, presenting as large gastric mass and bulky celiac regional adenopathy, with metastatic disease in the pleura with moderate left pleural effusion and left adrenal gland and left inguinal lymph node involvement, status post 6 cycles of R-CHOP chemo, - CT chest abd pelvis w/o contrast, cannot do with contrast given patient's renal function, does show splenomegaly with lobulated spleen with calcifications, progress compared to prior -Splenic ultrasound - US/US abdomen limited [id number] IMPRESSION: Mildly enlarged spleen with multiple nonspecific hypoechoic lesions. Further evaluation with contrast enhanced abdomen MRI should be considered in the adequate clinical setting. -Her PTH RP is pending, her lymphoma panel is pending, follow-up with Dr. Baird as outpatient for further imaging, possible PET scan, cannot give her contrast given her kidney function ? Nonetheless patient was treated with IV fluids, Decadron, 1 dose of pamidronate, 2 doses of calcitonin, overall clinically improved ?calcium discharge 10.8 Follow-up with primary care provider early next week to recheck calcium levels, 10.8 on discharge Follow-up with Dr. Baird next week ? Patient was advised to avoid calcium containing foods and liquids Discharged on a prednisone burst ? Hold vitamin D, hold calcium supplements on discharge -If any recurrent symptomatology go to the emergency room Patient had DARLING during the hospitalization likely secondary to severe hypercalcemia, improved with IV fluids, creatinine discharge is 1.7, discharged with instructions to drink plenty of electrolyte balanced fluids, avoid NSAIDs Patient had evidence of muscle wasting, cachexia, protein calorie malnutrition, low BMI, for malignancy related, was monitored for refeeding syndrome, discharged on potassium, phosphorus, magnesium supplementation on discharge. Advance diet slowly, monitor for nausea vomiting, follow-up with primary care provider as outpatient Physical Exam Const: COMMON NORMALS: no acute distress and patient oriented x3 Resp: COMMON NORMALS: normal respiratory effort, No retractions, No use of accessory muscles and clear to auscultation bilaterally AUSCULTATION: clear to auscultation bilaterally Cardio: COMMON NORMALS: regular rate, regular rhythm, S1 normal heart sound present and S2 normal heart sound present RATE: regular rate RHYTHM: regular rhythm HEART SOUNDS: S1 normal heart sound present and S2 normal heart sound present GI: COMMON NORMALS: Normal to inspection, nondistended, normoactive bowel sounds present and non-tender Extremity: COMMON NORMALS: no pedal edema Neuro: COMMON NORMALS: patient oriented x3 Psych: COMMON NORMALS: mental status grossly normal Urinary Catheter Management: Edmonds: Cath Placed During This Visit: yes Reason for Continuing Indwelling Catheter: Acute Urinary Retention or Obstruction Urinary Catheter Date of Insertion: 05/02/24 Urinary Catheter Time of Insertion: 05:29 Discharge Data Studies Completed and Pending Completed Studies During Hospitalization Category Date Time Status CT chest abdomen pelvis [[place] [id number] Cat Scan 05/02/24 06:07 Completed ] Routine US abdomen limited [id number] Routine Ultrasound 05/02/24 14:55 Completed US kidney bilateral [US renal BI* [id number]] Routine Ultrasound 05/02/24 14:55 Completed Pending at discharge Category Date Time Status Complete Blood Count w/Auto AM LABS Lab 05/06/24 04:00 Ordered Comprehensive Metabolic Panel AM LABS Lab 05/06/24 04:00 Ordered Magnesium AM LABS Lab 05/06/24 04:00 Ordered PTH Related [PTH Related Peptide (Protein)] Stat Lab 05/02/24 05:20 Received Vitamin D 1,25 Dihydroxy Stat Lab 05/02/24 12:17 Received Radiology Impressions Chest/Abdomen/Pelvis CT 05/02/24 06:07 IMPRESSION: 1. No acute chest findings. 2. Prominent bilateral extrarenal pelvis. No hydronephrosis in either kidney. No evidence of cortical calcifications or medullary nephrocalcinosis. 3. Edmonds catheter. Air-fluid level in the bladder. 4. Dense sigmoid constipation. 5. Splenomegaly with lobulated spleen with calcification. This is progressed compared to previous. 6. No other acute findings. Abdomen Ultrasound 05/02/24 14:55 IMPRESSION: Mildly enlarged spleen with multiple nonspecific hypoechoic lesions. Further evaluation with contrast enhanced abdomen MRI should be considered in the adequate clinical setting. Renal Ultrasound 05/02/24 14:55 IMPRESSION: Unremarkable kidneys and bladder. Laboratory Results WBC 9.66 10^3/uL (3.29-11.43) 05/05/24 03:06 RBC 3.53 10^6/uL (3.85-5.65) L 05/05/24 03:06 Hgb 10.20 g/dL (11.27-16.99) L 05/05/24 03:06 Hct 31.4 % (36-47) L 05/05/24 03:06 MCV 89.0 fl (85-98) 05/05/24 03:06 MCH 28.9 pg (27-33) 05/05/24 03:06 MCHC 32.5 g/dL (30-55) 05/05/24 03:06 RDW 12.0 % (12.1-15.1) L 05/05/24 03:06 Plt Count 320 10^3/cmm (157-399) 05/05/24 03:06 MPV 10.2 fL (7.4-10.4) 05/05/24 03:06 Neut % (Auto) 70.9 % 05/05/24 03:06 Lymph % (Auto) 19.7 % 05/05/24 03:06 [place] % (Auto) 8.3 % 05/05/24 03:06 Eos % (Auto) 0.4 % 05/05/24 03:06 Baso % (Auto) 0.5 % 05/05/24 03:06 Neut # (Auto) 6.85 10^3/uL (1.8-7.7) 05/05/24 03:06 Lymph # (Auto) 1.9 10^3/uL (0.8-4.8) 05/05/24 03:06 [place] # (Auto) 0.8 10^3/uL (0.2-0.9) 05/05/24 03:06 Eos # (Auto) 0.0 10^3/uL (0.0-0.8) 05/05/24 03:06 Baso # (Auto) 0.1 10^3/uL (0.0-0.1) 05/05/24 03:06 Nucleated RBC % (auto) 0 % 05/05/24 03:06 Nucleated RBCs # 0.0 /100WBC 05/05/24 03:06 ESR 53 mm/hr (0-15) H 05/02/24 01:20 Sodium 143 mmol/L (136-145) 05/05/24 03:06 Potassium 3.5 mmol/L (3.5-5.1) 05/05/24 03:06 Chloride 108 mmol/L (98-107) H 05/05/24 03:06 Carbon Dioxide 24 mmol/L (22-29) 05/05/24 03:06 Anion Gap 14.5 (5-19) 05/05/24 03:06 BUN 29 mg/dL (8-23) H 05/05/24 03:06 Creatinine 1.7 mg/dL (0.5-0.9) H 05/05/24 03:06 GFR Calculation 30.7 mL/min (90-130) L 05/05/24 03:06 Glucose 102 mg/dL (65-115) 05/05/24 03:06 Calculated Osmolality 302 mOsm/kg (285-295) H 05/05/24 03:06 Calcium 10.8 mg/dL (8.5-10.5) H 05/05/24 03:06 Phosphorus 2.1 mg/dL (2.5-4.5) L 05/04/24 12:16 Magnesium 1.6 mg/dL (1.7-2.3) L 05/05/24 03:06 Total Bilirubin 0.2 mg/dL (0.15-1.2) 05/05/24 03:06 AST 21 U/L (0-32) 05/05/24 03:06 ALT 18 U/L (0-33) 05/05/24 03:06 Alkaline Phosphatase 95 U/L (35-105) 05/05/24 03:06 Total Protein 5.3 g/dL (6.6-8.7) L 05/05/24 03:06 Albumin 3.2 g/dL (3.5-5.2) L 05/05/24 03:06 Globulin 2.1 g/dL (1.3-4.6) 05/05/24 03:06 Lyjny-5-Upspzjlvi 0.5 g/dL (0.2-0.3) H 05/02/24 12:17 Yavtg-3-Ydegccvho 1.1 g/dL (0.5-0.9) H 05/02/24 12:17 Lqku-3-Fjsmtcvk 0.3 g/dL (0.4-0.6) L 05/02/24 12:17 Bxvw-4-Xdxxyxow 0.3 g/dL (0.2-0.5) 05/02/24 12:17 Gamma Globulins 0.8 g/dL (0.8-1.7) 05/02/24 12:17 Abnorm Protein Band 1 Not Reportable 05/02/24 12:17 25-OH Vitamin D Total 104 ng/mL (30-100) H* 05/02/24 05:20 Procalcitonin 0.13 ng/mL (0-0.5) 05/02/24 05:20 TSH 3.19 uIU/mL (0.27-4.20) 05/02/24 05:20 TSH Cancelled 05/02/24 05:20 PTH Intact 8.6 pg/mL (15-65) L 05/02/24 05:20 Calcium (PTH Intact) 14.4 mg/dL (8.5-10.5) H* 05/02/24 05:20 Urine Color Yellow (Yellow) 05/02/24 01:06 Urine Appearance Clear (CLEAR) 05/02/24 01:06 Urine pH 5.5 (5-7) 05/02/24 01:06 Ur Specific [place] 1.007 (1.005-1.030) 05/02/24 01:06 Urine Protein Trace (Negative) A 05/02/24 01:06 Urine Glucose (UA) Negative (Normal) 05/02/24 01:06 Urine Ketones Negative (Negative) 05/02/24 01:06 Urine Blood 1+ (Negative) A 05/02/24 01:06 Urine Nitrate Negative (Negative) 05/02/24 01:06 Urine Bilirubin Negative (Negative) 05/02/24 01:06 Urine Urobilinogen 0.2 mg/dL (Negative) 05/02/24 01:06 Ur Leukocyte Esterase Negative (Negative) 05/02/24 01:06 Urine RBC 0-4 /hpf (0-2) H 05/02/24 01:06 Urine WBC 5-10 /hpf (0-5) H 05/02/24 01:06 Ur Squamous Epith Cells 5-10 /hpf (0-5) H 05/02/24 01:06 Amorphous Sediment 1+ /hpf 05/02/24 01:06 Urine Bacteria Trace /hpf (NONE) 05/02/24 01:06 Hyaline Casts 0-4 /lpf H 05/02/24 01:06 Urine Mucus 2+ /hpf 05/02/24 01:06 Ur Random Sodium 23 mmol/L 05/02/24 05:24 Ur Random Potassium 19 mmol/L 05/02/24 05:24 Ur Random Chloride 24 mmol/L 05/02/24 05:24 U Abnormal Prot Band 2 Not Reportable 05/02/24 12:17 U Abnormal Prot Band 3 Not Reportable 05/02/24 12:17 Pro Electrophoresis Int See note 05/02/24 12:17 Anti-ds DNA IgG Ab <1 IU/mL 05/02/24 01:20 Complement C3 132 mg/dL (90-180) 05/03/24 16:52 Complement C4 9 mg/dL (10-40) L 05/03/24 16:52 Lymphoma Panel Cancelled 05/02/24 12:17 Immunophenotype Interp See report 05/02/24 12:17 Vitals Last Vital Signs Temp 98.0 F 05/05/24 11:56 Pulse 70 05/05/24 11:56 Resp 15 05/05/24 11:56 BP 147/83 05/05/24 11:56 Pulse Ox 97 05/05/24 11:56 O2 Del Method Room Air 05/05/24 11:56 Discharge Plan Discharge Patient Disposition: Home Condition: Stable Prescriptions: New prednisone 20 mg tablet 20 mg PO BID 5 Days Qty: 10 0RF magnesium L-lactate 84 mg tablet extended release 84 mg PO DAILY 7 Days Qty: 7 0RF potassium chloride [Klor-Con 10] 10 mEq tablet extended release 10 meq PO DAILY 7 Days Qty: 7 0RF Phospha 250 Neutral 250 mg tablet 1 tab PO DAILY 7 Days Qty: 7 0RF Continued folic acid 1 mg tablet 1 mg PO DAILY ferrous fumarate 325 mg (106 mg iron) tablet 325 mg PO DAILY cyclobenzaprine 10 mg tablet 10 mg PO BEDTIME PRN (Reason: Spasms) tramadol 50 mg tablet 50 mg PO .Q4-6H PRN (Reason: Pain) Held hydroxychloroquine 200 mg tablet 200 mg PO BID Hold Instructions: Resume on 06/06/24. hold until you see oncology and rheumatology Discontinued multivitamin Tablet 1 tab PO DAILY biotin 10,000 mcg capsule 10,000 mcg PO DAILY calcium carbonate 200 mg calcium (500 mg) Tablet,Chewable 200 mg PO BID Discharge Orders: Discharge Order (Routine); Ordered 05/05/24 Ordered By: Dave Moulton Referrals: Dipti Luna MD [Primary Care Provider] - 1-3 days Indra Baird MD [Hospitalist] - 1-3 days Discharge Diet: Cardiac Discharge Activity: Resume usual activity Patient Instructions: Opioid Safety Activity Restrictions/Additional Instructions: - Please follow-up with Dr. Baird in the next week -Please follow-up with your primary care provider next week, check kidney function next week, creatinine discharge 1.7, check calcium levels next week, calcium discharge 10.8 -If you have any recurrent symptomatology please go to the emergency room -Please continue to hydrate well, drink plenty of electrolyte balanced fluids, try to avoid calcium containing food and drinks -Monitor for nausea vomiting Discharge Attestations Time Spent in Discharge Care*: greater than 30 min Time Spent in Smoking Cessation: 3 to 10 minutes Quality Metrics Clinical Quality Measures [ No reported AMI, CVA or VTE this stay] Coding Level of Care Code 14079 Total time (in minutes) for Discharge: 45 Diagnoses Hypercalcemia E83.52 Acute renal failure N17.9 Acute renal failure type: unspecified
[2024-05-06 11:43] LABS: Vit D 1,25 (Oh)2, Total 201 pg/mL (18-72); Vit D2 1,25 (Oh)2 <8 pg/mL; Vit D3 1,25 (Oh)2 201 pg/mL
[2024-05-09 23:46] LABS: PTH Related Peptide (Protein) 8 pg/mL (11-20)
== END 2024-05-05 14:50 | disposition home or self-care (01) | DRG 640 ==
LOC: ER 03:53 → ICU 03:53 → MEDSURG 05-03 18:42
PROVIDERS: Hospitalist; Admitting Provider Internal Medicine; Emergency Provider Emergency Medicine; PCP Family Medicine; Visit Provider Family Medicine
DX: E83.52 Hypercalcemia (principal); E43 Unspecified severe protein-calorie malnutrition; N17.9 Acute kidney failure, unspecified; Z68.1 Body mass index [BMI] 19.9 or less, adult; M32.9 Systemic lupus erythematosus, unspecified; F17.210 Nicotine dependence, cigarettes, uncomplicated; E87.6 Hypokalemia; Z79.899 Other long term (current) drug therapy; Z85.71 Personal history of Hodgkin lymphoma; Z92.21 Personal history of antineoplastic chemotherapy
CPT/HCPCS: 36415; 51702; 71250; 74176; 76705; 76770; 80048; 80053; 81003; 81015; 82306; 82310; 82436; 82542; 82652; 83735; 83970; 84100; 84133; 84145; 84155; 84165; 84300; 84443; 85025; 85651; 86160; 86225; 88184; 88185; 93005; 96372; 96374; 99285; J0630; J1100; J1644; J2270; J2405; J2430; J3480; J7030; J7040; Q3014

== ENCOUNTER 2024-05-10 10:07 | Emergency (ER) | payer OTHER, SELFPAY ==
[2024-05-10] VITALS (7 sets, daily range): BP systolic 124–151; BP diastolic 62–97; PULSE 66–73; RESP 14–17; TEMP 36.7; O2SAT 95–99; BMI 17.6
--- NOTE | 2024-05-10 10:26 | W.ED.BACK ---
HPI - Back Pain/Injury General: Chief Complaint: Back Pain/Injury Stated Complaint: left side rib pain/back pain Time Seen by Provider: 05/10/24 10:20 History of Present Illness: 59-year-old female brought to the emergency room by EMS with complaints of back pain. Patient states began last send if she bend over to pear picker but she had sharp back pains worse today. She has a previous history of lymphoma. She had a CT done 1 week ago of the chest abdomen pelvis that was remarkable only for enlarged spleen. No other pathology noted. No falls or trauma no urinary retention or fecal incontinence. Recent hospitalization was for hypercalcemia and renal failure Associated symptoms: Deny abdominal pain, chills, dysuria, fever(s) or urinary urgency Review of Systems Const: Denies: fever(s) or chills Card: Denies: chest pain Resp: Denies: dyspnea GI: Denies: abdominal pain : Denies: dysuria, urinary frequency or urinary urgency Musc: Reports: back pain; Denies: neck pain Skin/Breast: Denies: rash PFSH ED PFSH: Medical History History of autoimmune hemolytic anemia Diffuse large B cell lymphoma Acute renal failure Hypercalcemia Fatigue Lupus Ankle arthralgia Surgical History History of hysterectomy Family History Other Cancer Chronic kidney disease (CKD) Diabetes Hyperlipidemia Stroke Denies family history of Rheumatoid arthritis Lupus CAD (coronary artery disease) Hypertension Social History Smoking and tobacco/nicotine status: current every day tobacco/nicotine user cigarettes Packs smoked per day: 0.5 Years cigarettes smoked: 40 Alcohol intake: never Physical Exam Const: GENERAL APPEARANCE: cooperative ORIENTATION/CONSCIOUSNESS: Yes awake, Yes oriented to person, Yes oriented to place and Yes oriented to time HENMT: COMMON NORMALS: normocephalic, atraumatic and hearing grossly normal bilaterally HEAD & SCALP: normocephalic and atraumatic Resp: COMMON NORMALS: normal respiratory effort, No retractions, No use of accessory muscles and clear to auscultation bilaterally AUSCULTATION: clear to auscultation bilaterally Cardio: COMMON NORMALS: regular rate, regular rhythm and No murmurs present (Cardio) RATE: regular rate RHYTHM: regular rhythm GI: COMMON NORMALS: Soft to palpation and No hepatosplenomegaly present AUSCULTATION: Yes normoactive bowel sounds PALPATION: Yes Soft to palpation, No Tenderness to palpation present (GI), No Guarding due to palpation present (GI) and Yes No hepatosplenomegaly present Extremity: COMMON NORMALS: normal to inspection, capillary refill normal, no clubbing, cyanosis or edema, no calf tenderness and no pedal edema Neuro: SENSORIUM/ORIENTATION: Yes oriented to person, Yes oriented to place and Yes oriented to time Skin: COMMON NORMALS: no rashes or lesions noted GENERAL SKIN EXAM: no rashes or lesions noted Course Vital Signs: Vital signs: Vital Signs Temperature 98.1 F 05/10/24 10:07 Pulse Rate 73 05/10/24 15:09 Respiratory Rate 17 05/10/24 13:50 Blood Pressure 124/80 05/10/24 15:09 Pulse Oximetry 95 05/10/24 15:09 Oxygen Delivery Me thod Room Air 05/10/24 13:50 MDM - Back Pain/Injury Medical Decision Making Patient is a history of B-cell lymphoma there is concerned that she may have a recurrence. Initially reviewed the CT she had done week of there is no comment on any back lesions in the bone. Had not intended on doing any imaging however she did not have improvement with medications ultimately did do a CT of the lumbar spine and shows concerning changes of possible metastatic disease. She is in the process of getting a bone scan with Dr. Baird I contacted him just to make him aware of the findings there is a evidently a PET scan scheduled. She has a prescription for oxycodone at the pharmacy she has not yet picked up also gave her tizanidine and promethazine to use as needed she can use that in place of the ondansetron using whichever seems to be more helpful. Patient's pain has significantly improved return if pain is poorly controlled. Encouraged to follow-up with Dr. Baird next week. Labs 05/10/24 11:26 05/10/24 11:26 Radiology Impressions Lumbar Spine CT 05/10/24 13:45 IMPRESSION: 1. No high-grade central or foraminal stenosis. 2. Expansile bony lesions consistent with metastatic disease involving the RIGHT L1 transverse process, LEFT L1 lamina and the LEFT ilium. Possible involvement of the sacrum also due to the mixed attenuation within the bone. Laboratory Results WBC 11.95 10^3/uL (3.29-11.43) H 05/10/24 11:26 RBC 4.46 10^6/uL (3.85-5.65) 05/10/24 11:26 Hgb 12.90 g/dL (11.27-16.99) 05/10/24 11:26 Hct 40.1 % (36-47) 05/10/24 11:26 MCV 89.9 fl (85-98) 05/10/24 11:26 MCH 28.9 pg (27-33) 05/10/24 11:26 MCHC 32.2 g/dL (30-55) 05/10/24 11:26 RDW 12.6 % (12.1-15.1) 05/10/24 11:26 Plt Count 459 10^3/cmm (157-399) H 05/10/24 11:26 MPV 9.9 fL (7.4-10.4) 05/10/24 11:26 Neut % (Auto) 73.1 % 05/10/24 11:26 Lymph % (Auto) 15.6 % 05/10/24 11:26 [place] % (Auto) 8.3 % 05/10/24 11:26 Eos % (Auto) 1.4 % 05/10/24 11:26 Baso % (Auto) 0.4 % 05/10/24 11:26 Neut # (Auto) 8.73 10^3/uL (1.8-7.7) H 05/10/24 11:26 Lymph # (Auto) 1.9 10^3/uL (0.8-4.8) 05/10/24 11:26 [place] # (Auto) 1.0 10^3/uL (0.2-0.9) H 05/10/24 11:26 Eos # (Auto) 0.2 10^3/uL (0.0-0.8) 05/10/24 11:26 Baso # (Auto) 0.1 10^3/uL (0.0-0.1) 05/10/24 11:26 Nucleated RBC % (auto) 0 % 05/10/24 11:26 Nucleated RBCs # 0.0 /100WBC 05/10/24 11:26 Sodium 142 mmol/L (136-145) 05/10/24 11:26 Potassium 3.2 mmol/L (3.5-5.1) L 05/10/24 11:26 Chloride 101 mmol/L (98-107) 05/10/24 11:26 Carbon Dioxide 27 mmol/L (22-29) 05/10/24 11:26 Anion Gap 17.2 (5-19) 05/10/24 11:26 BUN 25 mg/dL (8-23) H 05/10/24 11:26 Creatinine 1.4 mg/dL (0.5-0.9) H 05/10/24 11:26 GFR Calculation 38.4 mL/min (90-130) L 05/10/24 11:26 Glucose 84 mg/dL (65-115) 05/10/24 11:26 Calculated Osmolality 298 mOsm/kg (285-295) H 05/10/24 11:26 Calcium 9.9 mg/dL (8.5-10.5) 05/10/24 11:26 Total Bilirubin 0.4 mg/dL (0.15-1.2) 05/10/24 11:26 AST 22 U/L (0-32) 05/10/24 11:26 ALT 29 U/L (0-33) 05/10/24 11:26 Alkaline Phosphatase 139 U/L (35-105) H 05/10/24 11:26 Total Protein 7.2 g/dL (6.6-8.7) 05/10/24 11:26 Albumin 4.0 g/dL (3.5-5.2) 05/10/24 11:26 Globulin 3.2 g/dL (1.3-4.6) 05/10/24 11:26 Urine Color Yellow (Yellow) 05/10/24 11:25 Urine Appearance Clear (CLEAR) 05/10/24 11:25 Urine pH 6.5 (5-7) 05/10/24 11:25 Ur Specific [place] 1.006 (1.005-1.030) 05/10/24 11:25 Urine Protein Negative (Negative) 05/10/24 11:25 Urine Glucose (UA) Negative (Normal) 05/10/24 11:25 Urine Ketones Negative (Negative) 05/10/24 11:25 Urine Blood Negative (Negative) 05/10/24 11:25 Urine Nitrate Negative (Negative) 05/10/24 11:25 Urine Bilirubin Negative (Negative) 05/10/24 11:25 Urine Urobilinogen 0.2 mg/dL (Negative) 05/10/24 11:25 Ur Leukocyte Esterase Negative (Negative) 05/10/24 11:25 Urine RBC 0-2 /hpf (0-2) 05/10/24 11:25 Urine WBC 0-5 /hpf (0-5) 05/10/24 11:25 Ur Squamous Epith Cells 0-5 /hpf (0-5) 05/10/24 11:25 Amorphous Sediment Not Reportable 05/10/24 11:25 Urine Bacteria None seen /hpf (NONE) 05/10/24 11:25 Hyaline Casts 0.40 /lpf 05/10/24 11:25 All radiology interpretation(s) finalized by discharge Discharge Plan Discharge Patient Disposition: Home Clinical Impression: Diffuse large b-cell lymphoma, extranodal and solid organ sites, Metastatic bone tumor Condition: Stable Prescriptions: New tizanidine 4 mg tablet 4 mg PO Q6H PRN (Reason: muscle spasticity) Qty: 20 0RF Rx Instructions: do not exceed 3 doses per 24 hrs hydrocodone-acetaminophen 5-325 mg tablet 1 tab PO Q6H PRN (Reason: pain) Qty: 25 0RF promethazine 25 mg tablet 25 mg PO Q6H PRN (Reason: nausea and vomiting) Qty: 20 0RF No Action folic acid 1 mg tablet 1 mg PO DAILY hydroxychloroquine 200 mg tablet 200 mg PO BID Hold Instructions: Resume on 06/06/24. hold until you see oncology and rheumatology ondansetron HCl 4 mg tablet 4 mg PO Q8H PRN (Reason: Nausea And Vomiting) cyclobenzaprine 10 mg tablet 10 mg PO BEDTIME PRN (Reason: Spasms) tramadol 50 mg tablet 50 mg PO .Q4-6H PRN (Reason: Pain) magnesium L-lactate 84 mg tablet extended release 84 mg PO DAILY 7 Days Qty: 7 0RF potassium chloride [Klor-Con 10] 10 mEq tablet extended release 10 meq PO DAILY 7 Days Qty: 7 0RF Phospha 250 Neutral 250 mg tablet 1 tab PO DAILY 7 Days Qty: 7 0RF prednisone 20 mg tablet 20 mg PO DAILY ferrous sulfate 325 mg (65 mg iron) tablet,delayed release (DR/EC) 325 mg PO DAILY Discharge Orders: Discharge ED (Routine); Ordered 05/10/24 Ordered By: Carter Luke Referrals: Dipti Luna MD [Primary Care Provider] - Discharge Diet: Usual diet Discharge Activity: Limit activity as instructed Patient Instructions: Opioid Safety, Pain Management Activity Restrictions/Additional Instructions: Thank you for choosing [facility] for your healthcare needs today. It is very important that you follow up as instructed or that you return to the Emergency Department should you have concerns or if your condition changes or worsens in any way. You were seen today with complaints of back pain we reviewed your old records your calcium today is normal your CT done a week ago did not show significant abnormality because you did not respond well to the pain medications a CT of your lumbar spine was done this CT does show areas that are concerning for possible metastatic lesions to the lower back. I did contact Dr. Baird so he is aware of this she should contact his office for further evaluation and treatment you were given pain medications to use at home. 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
[2024-05-10] MEDS: dexamethasone 10 mg/mL INJ IM (11:15)
[2024-05-10] MEDS: orphenadrine 30 mg/mL Inj 2 mL 60 MG IM (11:15)
[2024-05-10 11:43] LABS: Charge for UA Resulting for Rev
[2024-05-10 11:51] LABS: Bilirubin Urine Negative (Negative); Blood Urine Negative (Negative); Glucose Urine UA Negative (Normal); Ketones Urine Negative (Negative); Leukocyte Esterase Urine Negative (Negative); Nitrate Urine Negative (Negative); Protein Urine Negative (Negative); Specific Gravity, Urine 1.006 (1.005-1.030); Urine Appearance Clear (CLEAR); Urine Color Yellow (Yellow); Urobilinogen Urine 0.2 mg/dL (Negative); pH Urine 6.5 (5-7)
[2024-05-10 11:52] LABS: Basophils # 0.1 10^3/uL (0.0-0.1); Basophils % 0.4 %; Eosinophils # 0.2 10^3/uL (0.0-0.8); Eosinophils % 1.4 %; Hematocrit 40.1 % (36-47); Lymphocytes # 1.9 10^3/uL (0.8-4.8); Lymphocytes % 15.6 %; Mean Corpuscular HGB Conc 32.2 g/dL (30-55); Mean Corpuscular Hemoglobin 28.9 pg (27-33); Mean Corpuscular Volume 89.9 fl (85-98); Mean Platelet Volume 9.9 fL (7.4-10.4); Monocytes % 8.3 %; Neutrophils # 8.73 10^3/uL (1.8-7.7); Neutrophils % 73.1 %; Nucleated Red Blood Cells % 0 %; Platelet Count 459 10^3/cmm (157-399); Red Blood Count 4.46 10^6/uL (3.85-5.65); Red Cell Distribution Width 12.6 % (12.1-15.1); White Blood Count 11.95 10^3/uL (3.29-11.43)
[2024-05-10 11:56] LABS: Bacteria Urine None Seen /hpf; RBC Urine 0-2 /hpf (0-2); Squamous Epithelial Cell Urine 0-5 /hpf (0-5); WBC Urine 0-5 /hpf (0-5)
[2024-05-10 12:08] LABS: Alanine Aminotransferase 29 U/L (0-33); Alkaline Phosphatase 139 U/L (35-105); Anion Gap 17.2 (5-19); Aspartate Amino Transferase 22 U/L (0-32); Blood Urea Nitrogen 25 mg/dL (8-23); Calcium 9.9 mg/dL (8.5-10.5); Carbon Dioxide 27 mmol/L (22-29); Chloride 101 mmol/L (98-107); Creatinine Clr Calc Pharmacy 39.7793; Globulin 3.2 g/dL (1.3-4.6); Glomerular Filtration Rate 38.4 mL/min (90-130); Glucose 84 mg/dL (65-115); Osmolality Calculated 298 mOsm/kg (285-295); Potassium 3.2 mmol/L (3.5-5.1); Sodium 142 mmol/L (136-145); Total Bilirubin 0.4 mg/dL (0.15-1.2); Total Protein 7.2 g/dL (6.6-8.7)
[2024-05-10] MEDS: morphine 4 mg/mL SDV 1 mL IVP ×2 (12:49→13:50)
--- NOTE | 2024-05-10 13:45 | CT_ITS ---
WS: [id number] CT LUMBAR SPINE, noncontrast. HISTORY: Back pain TECHNIQUE: Contiguous 2.0 mm axial imaging are performed. Sagittal and coronal reformats are submitte d and reviewed. All CT scans at [facility] use at least one of these dose optimization techni ques: automated exposure control; mA and/or kV adjustment per patient size (includes targeted exams w here dose is matched to clinical indication); or iterative reconstruction. IV contrast: None DLP: 361.90 mGy.cm COMPARISON: None available. Normal lumbar alignment. No acute fracture. Schmorl's node along the inferior endplate of L1. Pedicle s are well intact. L1-2: Expansile bone lesion involving the RIGHT L1 transverse process with loss of the cortex. There is soft tissue expanding the bone and destroying the cortex. Expansile lesion measures 1.4 x 2.1 cm. There is probably an additional destructive bone lesion involving the LEFT L1 lamina with bone destru ction. L2-3: Mild disc bulging. No stenosis. L3-4: Mild disc bulging with facet and ligamentum flavum hypertrophy. Mild central, bilateral subarti cular recess and foraminal narrowing. L4-5: Mild annular disc bulging encroaching upon the ventral thecal sac. Mild ligamentum flavum and f acet arthritis. Mild central and bilateral subarticular recess stenosis. L5-S1: Broad-based central disc protrusion minimally contacting the S1 nerve roots. No stenosis. Scattered calcifications within the abdominal aorta. Bilateral extrarenal pelves. There is mixed scle rotic and lytic change within the sacrum. Also on the coronal reformat there is osseous destruction i nvolving the LEFT ilium. There is bony expansion of the ileum with loss of the normal cortex. CT/CT lumbar spine wo con* [id number] IMPRESSION: 1. No high-grade central or foraminal stenosis. 2. Expansile bony lesions consistent with metastatic disease involving the RIG HT L1 transverse process, LEFT L1 lamina and the LEFT ilium. Possible involveme nt of the sacrum also due to the mixed attenuation within the bone.
== END 2024-05-10 15:26 | disposition home or self-care (01) ==
PROVIDERS: Emergency Provider Family Medicine; PCP Family Medicine
DX: C83.39 Diffuse large B-cell lymphoma, extranodal and solid organ sites (principal); C79.51 Secondary malignant neoplasm of bone; F17.210 Nicotine dependence, cigarettes, uncomplicated; M32.9 Systemic lupus erythematosus, unspecified
CPT/HCPCS: 36415; 72131; 80053; 81003; 81015; 85025; 96372; 96374; 96376; 99285; J1100; J2270; J2360

== ENCOUNTER 2024-05-15 09:48 | Outpatient (CLI) | payer OTHER, SELFPAY ==
--- NOTE | 2024-05-15 10:00 | PETR_ITS ---
PROCEDURE INFORMATION: Exam: PET/CT Skull Base to Mid-thigh Exam date and time: 05/15/2024 10:43 AM Age: 59 years old Clinical indication: Condition or disease; Primary cancer: Non hodgkins lymphoma; Follow-up oncological assessment; Prior surgery; Surgery date: 6+ months; Surgery type: Hyst; Additional info: Restaging, Dr. Baird would like this to be completed on 05/15 LABS AND CLINICAL REPORTS: Glucose: 84 mg/dl Treatment strategy for malignancy (PET staging): Restaging (PS) TECHNIQUE: Imaging protocol: Following at least four-hour fasting and following the injection of radiopharmaceutical, low dose CT images were obtained. Then, PET images were obtained. Attenuation corrected images were constructed using the CT scan. Fused images of PET and CT were reviewed. The standardized uptake values (SUV) reported below are maximum values within a region of interest, expressed in gm/ml. Exam includes orbital meatal line to mid-thigh. Radiopharmaceutical: 12.46 mCi F-18 FDG (Fluorodeoxyglucose), IV. Time of imaging post radiopharmaceutical administration: 1 hour Injection site: Right antecubital COMPARISON: 1. CT lumbar spine wo con* [id number] 05/10/2024 1:[address] [place] [id number] 05/02/2024 8:52 AM 3. PT PET Scan 03/10/2019 8:04 AM FINDINGS: Brain: Visualized brain has normal physiologic uptake. Pharynx: No abnormal uptake. Larynx: No abnormal uptake. Lungs, pleura and trachea: Redemonstrated emphysematous change of the lungs with biapical pleural-parenchymal scarring. There is linear FDG uptake along the medial superior right major fissure showing SUV max of 9.5 on axial image 271 of series 202. There may be slight underlying linear density. Heart: Normal physiologic uptake. Pericardial calcifications without pericardial effusion. Mediastinal space: No abnormal uptake. Liver: Focal low-level FDG uptake at the left hepatic lobe shows SUV max of 3.2 on axial image 205 of series 202. No underlying CT abnormality. Gallbladder and biliary ducts: No abnormal uptake. Pancreas: No abnormal uptake. Spleen: Redemonstrated heterogeneous splenomegaly with numerous foci of FDG uptake with dominant area inferiorly showing SUV max of 22.1. Adrenal glands: No abnormal uptake. Kidneys and ureters: Normal physiologic uptake. Stomach and bowel: No abnormal uptake. Reproductive: The uterus is surgically absent. Vasculature: No abnormal uptake. [id number] systemic atherosclerotic calcification without aortic aneurysm. Lymph nodes: FDG uptake within multiple nonenlarged mediastinal lymph nodes, index node at the anterior superior mediastinum showing SUV max of 7.8 on axial image 280 of series 202. Index lower paratracheal node shows SUV max of 4.9 on axial image 270 of series 202. Subcentimeter right hilar node shows SUV max of 6.5 on axial image 260 of series 202. Left upper retroperitoneal/perigastric node measuring 6 mm in the short axis on axial image 203 of series 202 shows SUV max of 15.5. Skeleton: Widespread FDG avid foci throughout the axial and proximal appendicular skeletal system to include the proximal left humerus and proximal femora. Index lytic lesion at the T9 spinous process shows SUV max of 31.5. Index lytic lesion of the right L1 transverse process shows SUV max of 28.4. Index lytic lesion at the posterosuperior left ilium shows SUV max of 28.9. Soft tissues: No abnormal uptake in the visualized head, neck, chest, abdomen, pelvis, and extremities. PET/PET skull to thigh INIT [id number] IMPRESSION: 1. Widespread abnormal osseous findings may represent disease progression in this patient with history of lymphoma. Multiple myeloma or metastatic disease could appear similar. 2. Abnormal heterogeneous splenomegaly with multiple FDG avid foci concerning for disease progression given history of lymphoma. 3. Mediastinal, right hilar, and left upper retroperitoneal/perigastric FDG-avid lymphadenopathy could also represent disease progression. 4. Linear FDG uptake along the medial superior right major fissure with possible slight underlying linear density could be inflammatory or malignant. 5. Nonspecific focal low-level FDG uptake at the left hepatic lobe without underlying CT abnormality. Consider dedicated liver MRI without and with contrast.
== END 2024-05-15 09:49 | disposition home or self-care (01) ==
PROVIDERS: PCP Family Medicine; Visit Provider Internal Medicine Medical Oncology
DX: C85.90 Non-Hodgkin lymphoma, unspecified, unspecified site (principal); R16.1 Splenomegaly, not elsewhere classified; R59.0 Localized enlarged lymph nodes; R93.2 Abnormal findings on diagnostic imaging of liver and biliary tract; R93.7 Abnormal findings on diagnostic imaging of other parts of musculoskeletal system; J43.9 Emphysema, unspecified; Z90.710 Acquired absence of both cervix and uterus
CPT/HCPCS: 78815; A9552

== ENCOUNTER 2024-06-25 10:03 | Oncology outpatient (recurring) (ONCR) | payer OTHER, SELFPAY ==
[2024-06-25 10:48] LABS: Basophils % 11.1 %; Hematocrit 28.8 % (36-47); Lymphocytes # 0.1 10^3/uL (0.8-4.8); Lymphocytes % 38.9 %; Mean Corpuscular HGB Conc 33.3 g/dL (30-55); Mean Corpuscular Hemoglobin 28.9 pg (27-33); Mean Corpuscular Volume 86.7 fl (85-98); Mean Platelet Volume 8.8 fL (7.4-10.4); Monocytes % 22.2 %; Neutrophils % 27.8 %; Nucleated Red Blood Cells % 0 %; Platelet Count 169 10^3/cmm (157-399); Red Blood Count 3.32 10^6/uL (3.85-5.65); Red Cell Distribution Width 14.6 % (12.1-15.1)
[2024-06-25 11:02] LABS: Alanine Aminotransferase 33 U/L (0-33); Albumin Level 3.7 g/dL (3.5-5.2); Alkaline Phosphatase 198 U/L (35-105); Anion Gap 13.5 (5-19); Aspartate Amino Transferase 26 U/L (0-32); Blood Urea Nitrogen 22 mg/dL (8-23); Calcium 8.5 mg/dL (8.5-10.5); Carbon Dioxide 24 mmol/L (22-29); Chloride 104 mmol/L (98-107); Globulin 2.6 g/dL (1.3-4.6); Glomerular Filtration Rate 73.2 mL/min (90-130); Glucose 103 mg/dL (65-115); Osmolality Calculated 290 mOsm/kg (285-295); Potassium 3.5 mmol/L (3.5-5.1); Sodium 138 mmol/L (136-145); Total Bilirubin 0.4 mg/dL (0.15-1.2); Total Protein 6.3 g/dL (6.6-8.7)
[2024-06-25 11:17] LABS: Neutrophils # 0.05 10^3/uL (1.8-7.7); White Blood Count 0.18 10^3/uL (3.29-11.43)
== END 2024-07-02 23:59 | disposition home or self-care (01) ==
LOC: ONCMED 10:03
PROVIDERS: Internal Medicine Medical Oncology; PCP Family Medicine; Visit Provider Internal Medicine Medical Oncology
DX: C83.38 Diffuse large B-cell lymphoma, lymph nodes of multiple sites (principal)
CPT/HCPCS: 36415; 80053; 85025; 86850; 86900

== ENCOUNTER 2024-07-19 15:22 | Emergency (ER) | payer OTHER, SELFPAY ==
[2024-07-19] VITALS (10 sets, daily range): BP systolic 87–137; BP diastolic 59–79; PULSE 83–106; RESP 16–17; TEMP 36.8–37.1; O2SAT 98–100; BMI 16.7
[2024-07-19 16:52] LABS: Lymphocytes # 0.1 10^3/uL (0.8-4.8); Mean Corpuscular HGB Conc 33.9 g/dL (30-55); Mean Corpuscular Hemoglobin 28.8 pg (27-33); Mean Corpuscular Volume 85.1 fl (85-98); Mean Platelet Volume 10.8 fL (7.4-10.4); Monocytes # 0.1 10^3/uL (0.2-0.9); Nucleated Red Blood Cells % 0 %; Red Blood Count 2.08 10^6/uL (3.85-5.65); Red Cell Distribution Width 15.3 % (12.1-15.1)
--- NOTE | 2024-07-19 16:53 | ED_ITS ---
HPI - GI Bleed 2 General: Chief complaint: GI Bleed Stated complaint: rectal bleeding Time Seen by Provider: 07/19/24 16:28 Source: patient and family Mode of arrival: ambulatory History of Present Illness: This patient presented to the emergency department because she is concerned about bright red blood in her stool. She states that approximately 230 this morning she had the urge to have a bowel movement and went to the bathroom and noticed there was blood mixed with stool. She states she has had 3 other episodes throughout the day when there is been blood with the stool. She states that the stool has been loose and not painful. She did relate that she had constipation approximately week ago and strained it stool but did had no bleeding at that time. She also states that she thinks she might have some external hemorrhoids. She is currently being followed by oncology at [facility] with anticipation of being seen at the [facility] in [place] because of B-cell lymphoma. Her last chemotherapeutic treatment was in [place] approximately 3 weeks ago. She denies any fevers but states she has felt weak today notes presyncopal or syncopal episodes. No prior history of bleeding from stool in the past. No history of abdominal surgery she has had total abdominal hysterectomy otherwise. Associated symptoms: Denies abdominal pain, chills, easy bruising, fever(s), nausea, rash, syncope or vomiting Related Data Home Medications Medication Instructions Recorded Confirmed folic acid 1 mg tablet 1 mg PO DAILY 12/21/21 05/10/24 hydroxychloroquine 200 mg tablet 200 mg PO BID 12/21/21 05/10/24 cyclobenzaprine 10 mg tablet 10 mg PO BEDTIME PRN Spasms 05/02/24 05/10/24 tramadol 50 mg tablet 50 mg PO .Q4-6H PRN Pain 05/02/24 05/10/24 ondansetron HCl 4 mg tablet 4 mg PO Q8H PRN Nausea And Vomiting 05/07/24 05/10/24 ferrous sulfate 325 mg (65 mg 325 mg PO DAILY 05/10/24 05/10/24 iron) tablet,delayed release prednisone 20 mg tablet 20 mg PO DAILY 05/10/24 05/10/24 Previous Rx's Medication Instructions Recorded hydrocodone 5 mg-acetaminophen 325 1 tab PO Q6H PRN pain #25 tabs 05/10/24 mg tablet promethazine 25 mg tablet 25 mg PO Q6H PRN nausea and 05/10/24 vomiting #20 tabs tizanidine 4 mg tablet 4 mg PO Q6H PRN muscle spasticity 05/10/24 #20 tabs oxycodone 10 mg tablet 10 mg PO QID PRN pain 30 days #120 05/17/24 tabs Allergies Allergy/AdvReac Type Severity Reaction Status Date / Time Penicillins Allergy Mild ALGY-Rash Verified 07/19/24 16:10 Review of Systems 2 Const: Denies: fever(s) or chills ENMT: Denies: throat pain, odynophagia, nasal discharge or nasal congestion Card: Denies: chest pain, palpitations, irregular heart rhythm, syncope or pre-syncope Resp: Denies: productive cough, non-productive cough or wheezing GI: Reports: hematochezia; Denies: abdominal pain, nausea, vomiting, hematemesis or melena : Denies: flank pain, difficulty voiding, dysuria or urinary frequency Musc: Denies: neck pain, back pain, extremity pain or extremity swelling Skin/Breast: Denies: rash or pruritus Josh/Lymph: Denies: easy bruising or easy bleeding PFSH ED 2 PFSH: Medical History History of autoimmune hemolytic anemia Diffuse large B cell lymphoma Acute renal failure Hypercalcemia Fatigue Lupus Ankle arthralgia Surgical History History of hysterectomy Family History Other Cancer Chronic kidney disease (CKD) Diabetes Hyperlipidemia Stroke Denies family history of Rheumatoid arthritis Lupus CAD (coronary artery disease) Hypertension Social History Smoking and tobacco/nicotine status: current every day tobacco/nicotine user cigarettes Packs smoked per day: 0.5 Years cigarettes smoked: 40 Alcohol intake: never Physical Exam 2 Narrative: EXAM NARRATIVE: Patient's alert makes good eye contact and appears to be comfortable and in no acute distress. she has a thin body habitus Const: COMMON NORMALS: no acute distress and patient oriented x3 GENERAL APPEARANCE: cooperative and comfortable NUTRITIONAL APPEARANCE: thin HENMT: COMMON NORMALS: normocephalic, moist oral mucous membranes and oropharynx normal HEAD & SCALP: normocephalic Eye: COMMON NORMALS: Equal, round and reactive pupils present, EOMs intact bilaterally, conjunctivae normal and no scleral icterus CONJUNCTIVA: Yes conjunctivae normal PUPIL: Yes Equal, round and reactive pupils present Neck/C-Spine: COMMON NORMALS: full ROM, no lymphadenopathy, no JVD and Thyroid normal THYROID: Thyroid normal Chest: COMMONS NORMALS: normal inspection of the chest Resp: COMMON NORMALS: normal respiratory effort, No retractions, No use of accessory muscles and clear to auscultation bilaterally AUSCULTATION: clear to auscultation bilaterally Cardio: COMMON NORMALS: no JVD, regular rate, regular rhythm and No murmurs present (Cardio) RATE: regular rate RHYTHM: regular rhythm GI: COMMON NORMALS: Soft to palpation PALPATION: Yes Soft to palpation and Yes Tenderness to palpation present (GI) (He has mild generalized tenderness with no rebound or guarding) RECTAL EXAM: External hemorrhoid(s) present and hemorrhoids (Several external hemorrhoids 1 appears to have been recently spontaneously ) External hemorrhoid(s): Yes Back/Pelvis: COMMON NORMALS: thoracic and lumbar spine normal to inspection, no thoracic nor lumbar tenderness and thoraco-lumbar ROM normal Extremity: COMMON NORMALS: normal to inspection, full ROM, capillary refill normal and no calf tenderness Neuro: COMMON NORMALS: patient oriented x3, moves all extremities, no focal motor deficits and no sensory deficits noted Psych: COMMON NORMALS: mental status grossly normal Skin: COMMON NORMALS: no rashes or lesions noted and turgor normal GENERAL SKIN EXAM: no rashes or lesions noted and turgor normal Course 2 Reevaluation(s): Reevaluation #1: Discussed case with oncology personal financial representative from [facility]. They are willing to accept the patient in transfer. I discussed options with the patient and spouse. She certainly needs blood which we are capable of giving her at this facility as well as a empiric antibiotics for her neutropenia and possible translocation risk however we do not have gastroenterology support nor do we have platelets and she is likely going to need platelet transfusion as well due to her thrombocytopenia. Time: 19:42 Reevaluation #2: Patient remained stable and is currently receiving first unit of packed red cells. No additional bleeding since arrival Time: 20:41 Consultations: Consultation #1: Discussed with attending hospitalist Dr. Quiroga and reviewed case and he recommended transfer. Time: 19:55 Consultation #2: Discussed with oncology fellow at [facility] who agreed to accept the patient. Time: 20:19 Vital Signs: Vital signs: Vital Signs Temperature 98.5 F 07/19/24 16:11 Pulse Rate 86 07/19/24 17:04 Respiratory Rate 16 07/19/24 16:11 Blood Pressure 117/79 07/19/24 18:10 Pulse Oximetry 100 07/19/24 18:10 MDM - GI Bleed Medical Decision Making Patient presented as noted in the HPI. On clinical exam she does have abdominal tenderness but she also has external hemorrhoids which looked recently bled. We will go ahead and do due diligence and check hemoglobin and coags etc. and proceed with imaging given her abdominal tenderness. Patient to be pancytopenic with a ANC of 200, platelet count of 7000, hemoglobin of 6 all of these changes are significant and rapidly changed from last values that we have on file here. CT scan was reassuring at that there was no obvious intra-abdominal pathology that could be contributing to her current presentation that could be visualized on CT scan. Because of her her concomitant thrombocytopenia which is likely major factor contributing to her current presentation as well as lack of GI support etc. blood bank support etc. at this facility she will be transferred to her oncology service at [facility] this evening. Differential Diagnosis Likely Lower gastrointestinal hemorrhage Lab Data I reviewed the patient's lab results. 07/19/24 16:39 07/19/24 16:39 Radiology Impressions Abdomen/Pelvis CT 07/19/24 16:58 IMPRESSION: 1. No acute findings. 2. Ill-defined hypodense lesions in the spleen. For patients without history of cancer, recommend follow-up MRI in 6-12 months. With history of cancer, recommend evaluation with non-emergent PET vs. MRI vs. biopsy. 3. Portal venous hypertension with mild varices. This likely indicates underlying liver parenchymal disease. Laboratory Results WBC 0.20 10^3/uL (3.29-11.43) L* 07/19/24 16:39 RBC 2.08 10^6/uL (3.85-5.65) L 07/19/24 16:39 Hgb 6.00 g/dL (11.27-16.99) L* 07/19/24 16:39 Hct 17.7 % (36-47) L* 07/19/24 16:39 MCV 85.1 fl (85-98) 07/19/24 16:39 MCH 28.8 pg (27-33) 07/19/24 16:39 MCHC 33.9 g/dL (30-55) 07/19/24 16:39 RDW 15.3 % (12.1-15.1) H 07/19/24 16:39 Plt Count 7 10^3/cmm (157-399) L* 07/19/24 16:39 MPV 10.8 fL (7.4-10.4) H 07/19/24 16:39 Neut % (Auto) 20.0 % 07/19/24 16:39 Lymph % (Auto) 40.0 % 07/19/24 16:39 [place] % (Auto) 25.0 % 07/19/24 16:39 Eos % (Auto) 15.0 % 07/19/24 16:39 Baso % (Auto) 0.0 % 07/19/24 16:39 Neut # (Auto) 0.04 10^3/uL (1.8-7.7) L* 07/19/24 16:39 Lymph # (Auto) 0.1 10^3/uL (0.8-4.8) L 07/19/24 16:39 [place] # (Auto) 0.1 10^3/uL (0.2-0.9) L 07/19/24 16:39 Eos # (Auto) 0.0 10^3/uL (0.0-0.8) 07/19/24 16:39 Baso # (Auto) 0.0 10^3/uL (0.0-0.1) 07/19/24 16:39 Nucleated RBC % (auto) 0 % 07/19/24 16:39 Nucleated RBCs # 0.0 /100WBC 07/19/24 16:39 PT 12.70 SECONDS (12.1-14.9) 07/19/24 16:39 INR 0.93 (0.8-1.2) 07/19/24 16:39 Sodium 139 mmol/L (136-145) 07/19/24 16:39 Potassium 3.7 mmol/L (3.5-5.1) 07/19/24 16:39 Chloride 105 mmol/L (98-107) 07/19/24 16:39 Carbon Dioxide 25 mmol/L (22-29) 07/19/24 16:39 Anion Gap 12.7 (5-19) 07/19/24 16:39 BUN 26 mg/dL (8-23) H 07/19/24 16:39 Creatinine 0.9 mg/dL (0.5-0.9) 07/19/24 16:39 GFR Calculation 63.9 mL/min (90-130) L 07/19/24 16:39 Glucose 112 mg/dL (65-115) 07/19/24 16:39 Calculated Osmolality 294 mOsm/kg (285-295) 07/19/24 16:39 Calcium 8.4 mg/dL (8.5-10.5) L 07/19/24 16:39 Total Bilirubin 0.4 mg/dL (0.15-1.2) 07/19/24 16:39 AST 12 U/L (0-32) 07/19/24 16:39 ALT 14 U/L (0-33) 07/19/24 16:39 Alkaline Phosphatase 171 U/L (35-105) H 07/19/24 16:39 Total Protein 5.9 g/dL (6.6-8.7) L 07/19/24 16:39 Albumin 3.7 g/dL (3.5-5.2) 07/19/24 16:39 Globulin 2.2 g/dL (1.3-4.6) 07/19/24 16:39 Lipase 33 U/L (13-60) 07/19/24 16:39 Blood Type O Positive 07/19/24 17:36 Rho(D) Type Rh positive 07/19/24 17:36 Antibody Screen Negative 07/19/24 17:36 Crossmatch See Detail 07/19/24 17:36 All radiology interpretation(s) finalized by discharge Critical Care Time 2 Critical Care Time: Critical Care Time: Yes Total Critical Care Time: 35 Attestation: Critical care involved interpretation of laboratory test, discussing with family, discussing with consultants, managing blood transfusions. Discharge Plan Discharge Patient Disposition: Xfer Short-Term Hosp Clinical Impression: Pancytopenia, B-cell lymphoma, Acute GI bleeding Condition: Stable Prescriptions: No Action folic acid 1 mg tablet 1 mg PO DAILY hydroxychloroquine 200 mg tablet 200 mg PO BID Hold Instructions: Resume on 06/06/24. hold until you see oncology and rheumatology ondansetron HCl 4 mg tablet 4 mg PO Q8H PRN (Reason: Nausea And Vomiting) oxycodone 10 mg tablet 10 mg PO QID PRN (Reason: pain) 30 Days Qty: 120 0RF cyclobenzaprine 10 mg tablet 10 mg PO BEDTIME PRN (Reason: Spasms) tramadol 50 mg tablet 50 mg PO .Q4-6H PRN (Reason: Pain) prednisone 20 mg tablet 20 mg PO DAILY ferrous sulfate 325 mg (65 mg iron) tablet,delayed release (DR/EC) 325 mg PO DAILY tizanidine 4 mg tablet 4 mg PO Q6H PRN (Reason: muscle spasticity) Qty: 20 0RF Rx Instructions: do not exceed 3 doses per 24 hrs hydrocodone-acetaminophen 5-325 mg tablet 1 tab PO Q6H PRN (Reason: pain) Qty: 25 0RF promethazine 25 mg tablet 25 mg PO Q6H PRN (Reason: nausea and vomiting) Qty: 20 0RF Referrals: Dipti Luna MD [Primary Care Provider] - Coding Level of Care Code ED [employer]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
--- NOTE | 2024-07-19 16:58 | CTR_ITS ---
PROCEDURE INFORMATION: Exam: CT Abdomen And Pelvis With Contrast Exam date and time: 07/19/2024 5:24 PM Age: 59 years old Clinical indication: Other: Abd pain with rectal bleeding; HX of b cell lymphoma; Abdominal pain TECHNIQUE: Imaging protocol: Computed tomography of the abdomen and pelvis with contrast. Radiation optimization: All CT scans at this facility use at least one of these dose optimization techniques: automated exposure control; mA and/or kV adjustment per patient size (includes targeted exams where dose is matched to clinical indication); or iterative reconstruction. Contrast material: [id number]; Contrast volume: 100 ml; Contrast route: INTRAVENOUS (IV); COMPARISON: PT PET skull to thigh INIT [id number] 05/15/2024 10:43 AM RADIATION DOSE METRICS: Total DLP (mGy-cm): 377 FINDINGS: Liver: Normal. No mass. Gallbladder and biliary ducts: Normal. No calcified stones. No ductal dilation. Pancreas: Normal. No ductal dilation. Spleen: Multiple ill-defined hypodensities in the spleen, the largest 1.3 cm. Adrenal glands: Normal. No mass. Kidneys and ureters: Prominent bilateral extrarenal pelves. No calculus or hydronephrosis. Stomach and bowel: Unremarkable. No obstruction. No mucosal thickening. Appendix: The appendix is not visualized. No secondary signs of appendicitis. Intraperitoneal space: Unremarkable. No free air. No significant fluid collection. Vasculature: Enlarged main portal vein with mild splenic hilar and perigastric varices. Calcified plaque in the arteries. No aneurysm. Lymph nodes: Unremarkable. No enlarged lymph nodes. Urinary bladder: Distended urinary bladder. No wall thickening. Reproductive: Hysterectomy. Normal right ovary. No definite left ovary visualized. Bones/joints: Degenerative changes in the spine and hip joints. Chronic sclerotic L1 compression fracture. Old S3 sacrum fracture. No acute fracture. Soft tissues: Unremarkable. CT/CT abdomen pelvis w con* [id number] IMPRESSION: 1. No acute findings. 2. Ill-defined hypodense lesions in the spleen. For patients without history of cancer, recommend follow-up MRI in 6-12 months. With history of cancer, recommend evaluation with non-emergent PET vs. MRI vs. biopsy. 3. Portal venous hypertension with mild varices. This likely indicates underlying liver parenchymal disease.
[2024-07-19 17:17] LABS: Alanine Aminotransferase 14 U/L (0-33); Albumin Level 3.7 g/dL (3.5-5.2); Alkaline Phosphatase 171 U/L (35-105); Anion Gap 12.7 (5-19); Aspartate Amino Transferase 12 U/L (0-32); Blood Urea Nitrogen 26 mg/dL (8-23); Calcium 8.4 mg/dL (8.5-10.5); Carbon Dioxide 25 mmol/L (22-29); Chloride 105 mmol/L (98-107); Creatinine Clr Calc Pharmacy 58.5472; Globulin 2.2 g/dL (1.3-4.6); Glomerular Filtration Rate 63.9 mL/min (90-130); Glucose 112 mg/dL (65-115); Lipase 33 U/L (13-60); Osmolality Calculated 294 mOsm/kg (285-295); Potassium 3.7 mmol/L (3.5-5.1); Sodium 139 mmol/L (136-145); Total Bilirubin 0.4 mg/dL (0.15-1.2); Total Protein 5.9 g/dL (6.6-8.7)
[2024-07-19] MEDS: lactated ringers 1,000 ML 999 ML IV (17:19)
[2024-07-19 17:27] LABS: Slide Review Slide Review Perform
[2024-07-19 17:33] LABS: Hematocrit 17.7 % (36-47); Neutrophils # 0.04 10^3/uL (1.8-7.7); Platelet Count 7 10^3/cmm (157-399)
[2024-07-19] MEDS: iohexol 350 mg/mL 500 mL Btl (per mL) IV (17:37)
[2024-07-19 17:49] LABS: INR 0.93 (0.8-1.2)
[2024-07-19] MEDS: meropenem 500 mg SDV IVP (22:04)
[2024-07-19] MEDS: desmopressin 4 mcg/mL INJ SUBCUT (22:11)
--- NOTE | 2024-07-19 22:12 | PC.NURSE ---
This nurse took over patient care at 2129. Report called to [facility] for transfer.
== END 2024-07-19 22:20 | disposition short-term general hospital (02) ==
PROVIDERS: Emergency Medicine; Emergency Provider Emergency Medicine; PCP Family Medicine
DX: K92.2 Gastrointestinal hemorrhage, unspecified (principal); D61.818 Other pancytopenia; C85.10 Unspecified B-cell lymphoma, unspecified site; F17.210 Nicotine dependence, cigarettes, uncomplicated; M32.9 Systemic lupus erythematosus, unspecified
CPT/HCPCS: 36415; 36430; 74177; 80053; 83690; 85025; 85610; 86850; 86900; 86920; 96372; 96374; 99285; J2185; J2597; J7120; P9016